=== PATIENT | male | born 1940 | race Caucasian/White ===

== ENCOUNTER 2018-03-12 08:20 | Inpatient (IN) | payer MEDICARE, MEDICAID ==
[2018-03-12] MEDS ORDERED: Norepinephrine 4 mg/4mL Vial IV ONE (08:44)
--- NOTE | 2018-03-12 08:47 | ED Physician Chart ---
ED Chief Complaint/HPI - Patient Information Date Seen:: 03/12/18 Time Seen:: 08:30 Chief Complaint:: congestion and hypoxemia History of Present Illness:: Patient has been congested and had low pulse ox for an unspecified length of time. Patient is apparently a DNR. Allergies:: Allergies Allergy/AdvReac Type Severity Reaction Status Date / Time No Known Allergies Allergy Verified 06/10/16 12:33 Historian:: EMS, Medical Records Review:: Transfer documents Reviewed ED Review of Systems - Review of Systems General/Constitutional: No fever, No chills, No weight loss, No weakness, No diaphoresis, No edema, No loss of appetite Skin: No skin lesions, No rash, No bruising Head: No headache, No light-headedness Eyes: No loss of vision, No pain, No diplopia ENT: No earache, No nasal drainage, No sore throat, No tinnitus Neck: No neck pain, No swelling, No thyromegaly, No stiffness, No mass noted Cardio Vascular: No chest pain, No palpitations, No PND, No orthopnea, No edema Pulmonary: No SOB, No cough, No sputum, No wheezing, Other (congestion and hypoxemia) GI: No nausea, No vomiting, No diarrhea, No pain, No melena, No hematochezia, No constipation, No hematemesis G/U: No dysuria, No frequency, No hematuria Musculoskeletal: No bone or joint pain, No back pain, No muscle pain Endocrine: No polyuria, No polydipsia Psychiatric: No prior psych history, No depression, No anxiety, No suicidal ideation Hematopoietic: No bruising, No lymphadenopathy Allergic/Immuno: No urticaria, No angioedema Neurological: No syncope, No focal symptoms, No weakness, No paresthesia, No headache, No seizure, No dizziness, No confusion, No vertigo ED Past Medical History - Past Medical History Past Medical History: DM, Other (status post bacteremia; atherosclerotic heart disease; congestive heart failure; C VA with left-sided weakness; benign prostatic hypertrophy hypercholesterolemia; major depression; anxiety status post pneumonia; peripheral vascular disease; GERDS) Family History: Other (not available) Social History: Care Facility Surgical History: other (not available) Psychiatricy History: Dementia Medication: Reviewed Family Medical History - Family Member Father History Unknown: Yes Living Status: Hx Family Cancer: No Hx Family Coronary Artery Disease: No Hx Family Congestive Heart Failure: No Hx Family Hypertension: No Hx Family Stroke: Yes Hx Family Diabetes: No Hx Family Seizures: No Hx Family Dementia: No Hx Family AIDS: No Hx Family HIV: No Hx Family COPD: No Hx Family Hepatitis: No Hx Family Psychiatric Problems: No Hx Family Tuberculosis: No ED Physical Exam - Physical Examination Other Gen/Cons comments:: Chronically ill-appearing Head: Atraumatic Eyes: Lids, conjuctiva normal, PERRL Other Skin comments:: Decubitus left heel ENMT: External ears, nose nl Neck: No bruit Other Respiratory comments:: Breath sounds harsh Other Cardio Vascular comments:: Heart sounds faint. GI: No tenderness/rebounding/guarding : No CVA tenderness Other Extremities comments:: Upper extremity edema Other Neuro/Psych comments:: Left-sided weakness Misc: Normal back ED Labs/Radiology/EKG Results - Lab Results Results: Laboratory Results - last 24 hr 03/12/18 03/12/18 03/12/18 09:30 09:30 09:30 WBC 16.1 H RBC 4.06 Hgb 12.7 Hct 36.7 L MCV 90.4 MCH 31.2 H MCHC Differential 34.6 RDW 15.5 Plt Count 383 MPV 8.3 Neutrophils % 93.6 H Lymphocytes % 3.6 L Monocytes % 2.7 Eosinophils % 0.1 Basophils % 0.0 Sodium 130 L Potassium 3.6 Chloride 93 L Carbon Dioxide 26.9 Anion Gap 13.7 BUN 29 H Creatinine 1.2 Est GFR ( Amer) TNP Est GFR (Non-Af Amer) TNP BUN/Creatinine Ratio 24.2 Glucose 107 H Calcium 8.2 L B-Natriuretic Peptide 65.8 - Radiology Results Results: Chest x-ray demonstrated bibasilar infiltrates and left pleural scarring - EKG Interpretations Rate & Rhythm: atrial fibrillation with a rate of 140; normal axis ED Septic Shock - . Is Septic Shock (SBP<90, OR Lactate>4 mmol\L) present?: No ED Reassessment (Disposition) - Reassessment Reassessment Condition:: Unchanged - Diagnosis Diagnosis:: Bilateral pneumonia; dementia; leukocytosis - Patient Disposition Admitted to:: Med/Surg Spoke to:: Octavio Oliveira Admitting Medical Physician:: Lashawn Oliveira Condition at Disposition:: Stable
[2018-03-12] MEDS ORDERED: Piperacillin Sodium/Tazobact 3.375 gm Vial IV ONE (08:59)
[2018-03-12] MEDS ORDERED: Sodium Chloride 0.9% 1,000 ML IV ONE ×2 (09:01→11:12)
--- NOTE | 2018-03-12 09:25 | Diagnostic Imaging Report ---
Portable chest x-ray HISTORY: Cough Compared with prior exam of 11/14/2017, density that appears to be calcified and associated with the pleura noted about the left hemithorax. Infiltrate noted in the left lower lobe essentially unchanged from the prior exam. Findings consistent with a chronic etiology (old inflammatory disease). Accentuation of interstitial markings in the right lower lobe. The heart size appears normal. Atherosclerotic calcification seen in the aorta. IMPRESSION: 1. Allowing for differences in positioning and radiographic technique, little changed from the exam of 11/14/2017. Extensive abnormal density that appears calcified within the left hemithorax and most likely associated with the pleura. Additional chronic changes noted in the left and to a lesser degree right lower lobe regions. If needed, a CT scan would provide additional clarification and assessment.
[2018-03-12 09:37] LABS: HEMATOCRIT 36.7 % (41.0-60); HEMOGLOBIN 12.7 gm/dL (12-16); LYMPHOCYTE ABSOLUTE 0.6 Th/cmm (1.5-3.0); MEAN CELL VOLUME 90.4 fl (80-99); MEAN CORPUSCULAR HEMOGLOBIN 31.2 pg (27.0-31.0); MEAN CORPUSCULAR HGB CONC 34.6 pg (28.0-36.0); MEAN PLATELET VOLUME 8.3 fl; MONOCYTE ABSOLUTE 0.4 Th/cmm (0.3-1.0); NEUTROPHILE ABSOLUTE 15.1 Th/cmm (1.8-8.0); PLATELET COUNT 383 Th/cmm (150-400); RED BLOOD COUNT 4.06 Mil/cmm (3.80-5.80); RED CELL DISTRIBUTION WIDTH 15.5 % (11.5-20.0)
[2018-03-12 09:38] LABS: % EOSINOPHILS 0.1 % (0.0-5.0); % LYMPHOCYTES 3.6 % (20.0-50.0); % MONOCYTES 2.7 % (2.0-10.0); % NEUTROPHILS 93.6 % (40.0-80.0); WHITE BLOOD COUNT 16.1 Th/cmm (4.8-10.8)
[2018-03-12 09:52] LABS: ANION GAP 13.7 (7.0-16.0); BUN - UREA NITROGEN 29 mg/dL (7-25); CALCIUM SERUM 8.2 mg/dL (8.6-10.3); CARBON DIOXIDE 26.9 mEq/L (21.0-31.0); CHLORIDE 93 mEq/L (98-107); CREATININE - SERUM 1.2 mg/dL (0.7-1.3); GLUCOSE 107 mg/dL (70-105); POTASSIUM SERUM 3.6 mEq/L (3.5-5.1); SODIUM SERUM 130 mEq/L (136-145)
[2018-03-12] MEDS ORDERED: Promethazine DM 6.25/15mg-5mL 5 ML SYR PO PRN (12:49)
[2018-03-12] MEDS: D5-0.45NS 1,000 ML IV SCH (13:54)
[2018-03-12] MEDS: metroNIDAZOLE 500mg/NS 100mL 500 MG/100 ML BAG IV SCH ×2 (14:47→22:07)
[2018-03-12] MEDS ORDERED: Acetaminophen 500 MG TAB PO PRN (18:51)
[2018-03-12] MEDS ORDERED: Magnesium Hydroxide (MOM) 30 mL UDC PO PRN (18:55)
[2018-03-12] MEDS: Clobetasol Propionate 0.05% Cream 45 gm Tube TP SCH (20:00)
[2018-03-13] MEDS: metroNIDAZOLE 500mg/NS 100mL 500 MG/100 ML BAG IV SCH ×3 (05:15→21:04)
[2018-03-13] MEDS: D5-0.45NS 1,000 ML IV SCH (05:56)
[2018-03-13 08:01] LABS: % BASOPHILS 2.3 % (0.0-2.0); % EOSINOPHILS 0.1 % (0.0-5.0); % LYMPHOCYTES 9.1 % (20.0-50.0); % NEUTROPHILS 87.5 % (40.0-80.0); BASOPHILE ABSOLUTE 0.4 Th/cumm (0-0.2); HEMATOCRIT 33.5 % (41.0-60); HEMOGLOBIN 11.3 gm/dL (12-16); LYMPHOCYTE ABSOLUTE 1.6 Th/cmm (1.5-3.0); MEAN CELL VOLUME 90.3 fl (80-99); MEAN CORPUSCULAR HEMOGLOBIN 30.5 pg (27.0-31.0); MEAN CORPUSCULAR HGB CONC 33.8 pg (28.0-36.0); MEAN PLATELET VOLUME 8.2 fl; MONOCYTE ABSOLUTE 0.2 Th/cmm (0.3-1.0); RED BLOOD COUNT 3.72 Mil/cmm (3.80-5.80); RED CELL DISTRIBUTION WIDTH 16.2 % (11.5-20.0)
--- NOTE | 2018-03-13 08:09 | Diagnostic Imaging Report ---
CHEST X-RAY: AP view INDICATION: Pneumonia COMPARISON: 03/12/2018 FINDINGS: Persistent left lung infiltrate and left lung pleural disease is seen with additional right lower lobe infiltrates. Heart size normal. Atherosclerosis is noted. IMPRESSION: Persistent bilateral infiltrates, left greater than right, with likely left lung pleural disease and pleural calcifications. If necessary short-term follow-up CT may also be obtained.
[2018-03-13 08:23] LABS: ALB/GLOB RATIO 0.7 (1.0-1.8); ALBUMIN 1.7 gm/dL (4.2-5.5); ALKALINE PHOSPHATASE 65 U/L (34-104); ANION GAP 11.6 (7.0-16.0); BILIRUBIN,TOTAL 0.8 mg/dL (0.3-1.0); BUN - UREA NITROGEN 30 mg/dL (7-25); CALCIUM SERUM 7.5 mg/dL (8.6-10.3); CARBON DIOXIDE 26.3 mEq/L (21.0-31.0); CHLORIDE 98 mEq/L (98-107); CREATININE - SERUM 0.9 mg/dL (0.7-1.3); GLUCOSE 118 mg/dL (70-105); MAGNESIUM 1.6 mg/dL (1.9-2.7); POTASSIUM SERUM 3.9 mEq/L (3.5-5.1); SGOT 17 U/L (13-39); SGPT/ALT 17 U/L (7-52); SODIUM SERUM 132 mEq/L (136-145); TOTAL PROTEIN,SERUM 4.2 gm/dL (6.0-8.3)
[2018-03-13 08:35] LABS: PLATELET COUNT 299 Th/cmm (150-400); WHITE BLOOD COUNT 17.2 Th/cmm (4.8-10.8)
[2018-03-13 09:32] LABS: pH 7.53 (7.35-7.45)
--- NOTE | 2018-03-13 10:10 | History & Physical ---
ADMIT DATE: CHIEF COMPLAINT: Congestion and shortness of breath. HISTORY OF PRESENT ILLNESS: This is a 78-year-old gentleman, resident of [facility] with history significant for CAD, diastolic heart failure, CVA with hemiparesis, essential hypertension, dementia, BPH, peripheral vascular disease, who apparently was treated recently with IV antibiotics for lung infection. He presented to the ED with worsening congestion and shortness of breath. He was noted to be lethargic and pertinent findings on admission included a white count of 16.1 with a sodium of 130, BUN 29, lactic acid of 7.22. He also was noted to be hypoxic and he was placed briefly on BiPAP, but now is currently doing well on 35% FiO2 via Venturi mask. He has been admitted to the medical/surgical floor, given that he is a DNR status--level 3. At this time, he is asleep, arousable, but not able to provide any significant history. PAST MEDICAL HISTORY: Please refer to the above, also unsteady gait, generalized muscle weakness, history of angina, essential hypertension, BPH, hypercholesterolemia, major depression with previous pneumonia, osteoarthritis, orthostatic hypotension, GERD/esophagitis. PAST SURGERIES: Unknown. FAMILY HISTORY: Unknown, but likely noncontributory to this admission. ALLERGIES: NKDA. OUTPATIENT MEDICATIONS: Docusate sodium 10 mg b.i.d., iron sulfate 325 b.i.d., gabapentin 300 b.i.d., DuoNeb q. 4 hours as needed for shortness of breath, lisinopril 5 mg every day, milk of magnesia p.r.n., multivitamins every day, omeprazole 20 every day, oxybutynin 5 mg b.i.d., Protonix 20 mg once a day, Remeron 22.5 at bedtime, Flomax 0.4 at bedtime, Tylenol p.r.n. for pain, venlafaxine 37.5 every day. REVIEW OF SYSTEMS: Not able to be done given patient's condition. PHYSICAL EXAMINATION: VITAL SIGNS: Temperature 97.3. He has been afebrile, pulse 87, respirations 17, BP 91/56, satting 93-95% on 35 FiO2. GENERAL: He is well-developed, well-nourished male, currently lethargic, but in no distress. HEAD AND NECK: Normocephalic, atraumatic. NECK: There is no JVD or LAD. CARDIAC: Regular rate and rhythm without any murmurs. LUNGS: Decreased with rhonchi bilaterally. ABDOMEN: Soft, supple, nontender, nondistended, normoactive bowel sounds. EXTREMITIES: On lower extremity, there is trace edema. NEUROLOGIC: Not able to be done given patient's condition. LABORATORY DATA: Labs on admission 16.1 with a white count, H and H 12/36 with a platelet count of 383, 93% neutrophils. Sodium 130, potassium 3.6, chloride 93, BUN is 29, creatinine 1.2 and glucose 107. Lactic acid as noted above 7.22. BNP level 84. Chest x-ray shows persistent bilateral infiltrates, left greater than right with likely left pleural disease and left pleural calcifications. ASSESSMENT: 1. Sepsis, shock. 2. Bilateral pneumonia, left greater than right with left lung pleural disease. 3. Hypoxemic respiratory failure. 4. Elevated lactic acid level. 5. Recent history of pneumonia. 6. History of diastolic heart failure. 7. History of coronary artery disease. 8. History of cerebrovascular accident with late effects. 9. History of hypercholesterolemia. 10. History of hypertension. 11. History of coronary artery disease/status post RI. 12. History of chronic debility. 13. History of depression. 14. DNR status level 3. PLAN: The patient has been admitted to Med/Surg for supportive care and treatment. The patient has been placed on antibiotics, pulmonary supportive care and IV steroids. He will remain on 35% FiO2 and an ST eval will be asked for given his current lethargic state. If able to pass swallow eval, his home meds will be slowly restarted. IV fluids have been started for fluid maintenance. Pulmonary consult will be asked for further management and care. [facility]# [id number] DEBORAH
--- NOTE | 2018-03-13 14:31 | Consultation ---
DATE OF CONSULTATION: 03/12/[address] Oliveira. Thank you very much, Dr. Oliveira for this consultation. HISTORY OF PRESENT ILLNESS: This is a 78-year-old male, [facility] resident, presents with cough, congestion, shortness of breath, was in significant distress, was placed on BiPAP and now is off the BiPAP on face mask, appears to be doing better and more comfortable. Tachycardia has improved as well. PAST MEDICAL HISTORY: As above in addition to dementia, CVA, BPH. SOCIAL HISTORY: Not available. REVIEW OF SYSTEMS: Unable to obtain because of the patient's condition. PHYSICAL EXAMINATION: GENERAL: The patient is lethargic, noncommunicative. VITAL SIGNS: Temperature 97.9, pulse is 100, respirations 22, blood pressure 125/65, saturation 100%. HEENT: Atraumatic, normocephalic. Pupils are reactive to light and accommodation. Ears, nose, and throat are normal. NECK: Supple. No JVD. CHEST: There are few rhonchi bilaterally. HEART: Regular rate and rhythm. ABDOMEN: Soft. EXTREMITIES: No edema. LABORATORY DATA AND DIAGNOSTIC STUDIES: WBC 16.1, hemoglobin 12.7, platelets are 383. Sodium 130, potassium 3.6, BUN 29, creatinine 1.2. Lactic acid 7.22. Chest x-ray; bilateral infiltrates, more on the left than the right. IMPRESSION: 1. This is a 78-year-old male with respiratory failure. 2. Pneumonia. 3. Sepsis. 4. Weakness. 5. Dementia. 6. Dysphagia. PLAN: 1. IV antibiotics. 2. Nebulizer treatment. 3. Pulmonary toilet. 4. Supportive care. 5. Follow up chest x-ray and I will follow the patient with you. Thank you very much for this consultation. JOB# [id number] DEBORAH
[2018-03-13] MEDS: Clobetasol Propionate 0.05% Cream 45 gm Tube TP SCH (17:41)
[2018-03-13] MEDS: Albuterol/Ipratropium Neb 3 ML AERS HHN PRN (23:10)
[2018-03-14] MEDS: D5-0.45NS 1,000 ML IV SCH (03:09)
[2018-03-14] MEDS: metroNIDAZOLE 500mg/NS 100mL 500 MG/100 ML BAG IV SCH ×3 (05:39→22:40)
[2018-03-14 07:34] LABS: HEMATOCRIT 28.6 % (41.0-60); HEMOGLOBIN 9.7 gm/dL (12-16); MEAN CELL VOLUME 90.7 fl (80-99); MEAN CORPUSCULAR HEMOGLOBIN 30.7 pg (27.0-31.0); MEAN CORPUSCULAR HGB CONC 33.8 pg (28.0-36.0); MEAN PLATELET VOLUME 8.4 fl; RED BLOOD COUNT 3.15 Mil/cmm (3.80-5.80); RED CELL DISTRIBUTION WIDTH 15.7 % (11.5-20.0); WHITE BLOOD COUNT 15.6 Th/cmm (4.8-10.8)
[2018-03-14 07:41] LABS: % BASOPHILS 0.1 % (0.0-2.0); % EOSINOPHILS 0.1 % (0.0-5.0); % LYMPHOCYTES 5.7 % (20.0-50.0); % MONOCYTES 2.3 % (2.0-10.0); % NEUTROPHILS 91.8 % (40.0-80.0); ANION GAP 11.1 (7.0-16.0); BUN - UREA NITROGEN 31 mg/dL (7-25); CALCIUM SERUM 6.9 mg/dL (8.6-10.3); CARBON DIOXIDE 24.9 mEq/L (21.0-31.0); CHLORIDE 100 mEq/L (98-107); CREATININE - SERUM 0.7 mg/dL (0.7-1.3); GLUCOSE 109 mg/dL (70-105); LYMPHOCYTE ABSOLUTE 0.9 Th/cmm (1.5-3.0); MAGNESIUM 1.7 mg/dL (1.9-2.7); MONOCYTE ABSOLUTE 0.4 Th/cmm (0.3-1.0); NEUTROPHILE ABSOLUTE 14.3 Th/cmm (1.8-8.0); PLATELET COUNT 364 Th/cmm (150-400); SODIUM SERUM 133 mEq/L (136-145)
[2018-03-14] MEDS: Albuterol/Ipratropium Neb 3 ML AERS HHN PRN ×3 (07:45→23:09)
--- NOTE | 2018-03-14 09:23 | Diagnostic Imaging Report ---
CT Chest without IV contrast HISTORY: Pneumonia COMPARISON: Chest x-ray on 03/13/2018. Technique: Axial images were obtained from the base of the neck to the upper abdomen without IV contrast. Reconstructions were made. Total DLP 312, CTD I 17.4 Findings: Evaluation of the mediastinum is limited due to lack of IV contrast. Borderline prominent mediastinal lymph nodes are noted. The ascending aorta measures up to 3.8 cm. Diffuse atherosclerosis is noted including heavy coronary artery calcifications. Heart size normal. Trace pericardial fluid is noted. Intraluminal density probable mucus is seen within the trachea. Evaluation of the lung jarrell demonstrate focal right apical infiltrate measuring 3 cm. Additional small tree-in-bud infiltrates of the lungs are seen. Bibasal consolidative changes are noted. Left upper lobe infiltrates are seen with multiple cavitary lesions within the left upper lobe the largest measuring 2.8 x 2.8 cm. Diffuse left-sided pleural calcifications are noted. Trace small bilateral effusions are noted. Upper abdomen demonstrates increased density of the gallbladder. Fatty liver is noted. Degenerative changes of the spine are noted. IMPRESSION: Left upper lobe cavitary infiltrates measuring up to 2.8 x 2.8 cm. Infectious etiologies is such as cavitating pneumonia. Tuberculosis may also be considered. Neoplastic etiology is less likely, however, follow-up is recommended to ensure resolution. Additional right upper lobe infiltrates measuring up to 3 cm for which follow-up is also recommended to ensure resolution Additional multiple tiny nodular tree-in-bud infiltrates noted. Bibasal consolidative changes are also noted with this small bilateral effusions. Diffuse left-sided pleural plaque calcifications which may be due to infectious inflammatory process or previous asbestos exposure. Diffuse atherosclerosis. Borderline prominent mediastinal lymph nodes, nonspecific and possibly reactive Fatty liver. Increased density in the gallbladder. This may be due to sludge. Ultrasound would further clarify. Final results were administered to the referring team on 03/14/2018 at 9:10 AM.
[2018-03-14] MEDS: Clobetasol Propionate 0.05% Cream 45 gm Tube TP SCH (09:40)
[2018-03-14] MEDS ORDERED: Potassium Chloride 40 MEQ, Lidocaine 1% 20mL Vial 25 MG in Sodium Chloride 0.9% 250 ML IV ONE (11:40)
[2018-03-14] MEDS: KCL 20mEq/100mL Premix Bag IV SCH ×2 (13:24→17:03)
[2018-03-15] MEDS: D5-0.45NS 1,000 ML IV SCH (03:53)
[2018-03-15] MEDS: metroNIDAZOLE 500mg/NS 100mL 500 MG/100 ML BAG IV SCH ×3 (06:13→21:29)
[2018-03-15 06:59] LABS: BASOPHILE ABSOLUTE 0.2 Th/cumm (0-0.2); HEMOGLOBIN 9.5 gm/dL (12-16); MEAN CELL VOLUME 89.3 fl (80-99); MEAN CORPUSCULAR HEMOGLOBIN 30.3 pg (27.0-31.0); MEAN CORPUSCULAR HGB CONC 33.9 pg (28.0-36.0); MEAN PLATELET VOLUME 7.9 fl; MONOCYTE ABSOLUTE 0.1 Th/cmm (0.3-1.0); NEUTROPHILE ABSOLUTE 13.7 Th/cmm (1.8-8.0); PLATELET COUNT 381 Th/cmm (150-400); RED BLOOD COUNT 3.14 Mil/cmm (3.80-5.80); RED CELL DISTRIBUTION WIDTH 15.9 % (11.5-20.0)
[2018-03-15 07:04] LABS: % BASOPHILS 1.6 % (0.0-2.0); % LYMPHOCYTES 6.9 % (20.0-50.0); % MONOCYTES 0.8 % (2.0-10.0); % NEUTROPHILS 90.7 % (40.0-80.0)
[2018-03-15 07:07] LABS: ANION GAP 11.9 (7.0-16.0); BUN - UREA NITROGEN 25 mg/dL (7-25); CALCIUM SERUM 6.8 mg/dL (8.6-10.3); CARBON DIOXIDE 24.2 mEq/L (21.0-31.0); CHLORIDE 102 mEq/L (98-107); CREATININE - SERUM 0.6 mg/dL (0.7-1.3); GLUCOSE 114 mg/dL (70-105); MAGNESIUM 1.9 mg/dL (1.9-2.7); POTASSIUM SERUM 3.1 mEq/L (3.5-5.1); SODIUM SERUM 135 mEq/L (136-145)
[2018-03-15] MEDS: Albuterol/Ipratropium Neb 3 ML AERS HHN PRN ×3 (08:06→23:17)
--- NOTE | 2018-03-15 10:03 | Diagnostic Imaging Report ---
CHEST X-RAY: AP view INDICATION: Shortness of breath COMPARISON: 03/13/2018 FINDINGS: Diffuse bilateral hazy infiltrates are seen with left-sided pleural calcifications. Heart size is borderline prominent. Atherosclerosis is noted. IMPRESSION: Diffuse bilateral hazy infiltrates, increased since prior exam Diffuse left pleural base calcifications.
[2018-03-15] MEDS: Clobetasol Propionate 0.05% Cream 45 gm Tube TP SCH (13:53)
[2018-03-15] MEDS: KCL 20mEq/100mL Premix 40 MEQ/200 ML PIGGYBACK IV SCH ×2 (15:21→18:20)
[2018-03-16] MEDS: D5-0.45NS 1,000 ML IV SCH (05:03)
[2018-03-16] MEDS: metroNIDAZOLE 500mg/NS 100mL 500 MG/100 ML BAG IV SCH ×3 (05:09→20:28)
[2018-03-16 06:38] LABS: HEMATOCRIT 28.9 % (41.0-60); HEMOGLOBIN 9.8 gm/dL (12-16); MEAN CELL VOLUME 90.2 fl (80-99); MEAN CORPUSCULAR HEMOGLOBIN 30.5 pg (27.0-31.0); MEAN CORPUSCULAR HGB CONC 33.9 pg (28.0-36.0); MEAN PLATELET VOLUME 7.4 fl; MONOCYTE ABSOLUTE 0.2 Th/cmm (0.3-1.0); NEUTROPHILE ABSOLUTE 13.7 Th/cmm (1.8-8.0); PLATELET COUNT 392 Th/cmm (150-400)
[2018-03-16 06:43] LABS: % EOSINOPHILS 0.1 % (0.0-5.0); % LYMPHOCYTES 6.9 % (20.0-50.0); % MONOCYTES 1.2 % (2.0-10.0); % NEUTROPHILS 91.8 % (40.0-80.0); WHITE BLOOD COUNT 14.9 Th/cmm (4.8-10.8)
[2018-03-16 06:59] LABS: ANION GAP 10.5 (7.0-16.0); BUN - UREA NITROGEN 19 mg/dL (7-25); CARBON DIOXIDE 25.9 mEq/L (21.0-31.0); CHLORIDE 105 mEq/L (98-107); CREATININE - SERUM 0.6 mg/dL (0.7-1.3); GLUCOSE 111 mg/dL (70-105); MAGNESIUM 1.9 mg/dL (1.9-2.7); POTASSIUM SERUM 3.4 mEq/L (3.5-5.1); SODIUM SERUM 138 mEq/L (136-145)
[2018-03-16] MEDS: Albuterol/Ipratropium Neb 3 ML AERS HHN PRN ×2 (07:27→14:44)
[2018-03-16] MEDS: Clobetasol Propionate 0.05% Cream 45 gm Tube TP SCH (09:00)
[2018-03-16] MEDS: D5-0.45NS w/10 mEq KCL 1,000 ML IV SCH (09:58)
[2018-03-17] MEDS: D5-0.45NS w/10 mEq KCL 1,000 ML IV SCH ×2 (04:50→12:20)
[2018-03-17] MEDS: metroNIDAZOLE 500mg/NS 100mL 500 MG/100 ML BAG IV SCH ×3 (05:21→20:34)
[2018-03-17 06:49] LABS: ANION GAP 11.6 (7.0-16.0); BUN - UREA NITROGEN 14 mg/dL (7-25); CALCIUM SERUM 7.1 mg/dL (8.6-10.3); CARBON DIOXIDE 24.5 mEq/L (21.0-31.0); CHLORIDE 105 mEq/L (98-107); CREATININE - SERUM 0.6 mg/dL (0.7-1.3); GLUCOSE 109 mg/dL (70-105); POTASSIUM SERUM 3.1 mEq/L (3.5-5.1); SODIUM SERUM 138 mEq/L (136-145)
[2018-03-17 06:57] LABS: % BASOPHILS 0.2 % (0.0-2.0); % EOSINOPHILS 0.2 % (0.0-5.0); % LYMPHOCYTES 7.7 % (20.0-50.0); % MONOCYTES 2.5 % (2.0-10.0); % NEUTROPHILS 89.4 % (40.0-80.0); HEMATOCRIT 30.5 % (41.0-60); HEMOGLOBIN 10.6 gm/dL (12-16); LYMPHOCYTE ABSOLUTE 1.2 Th/cmm (1.5-3.0); MEAN CELL VOLUME 89.4 fl (80-99); MEAN CORPUSCULAR HEMOGLOBIN 30.9 pg (27.0-31.0); MEAN CORPUSCULAR HGB CONC 34.6 pg (28.0-36.0); MEAN PLATELET VOLUME 7.5 fl; MONOCYTE ABSOLUTE 0.4 Th/cmm (0.3-1.0); NEUTROPHILE ABSOLUTE 13.6 Th/cmm (1.8-8.0); PLATELET COUNT 435 Th/cmm (150-400); RED BLOOD COUNT 3.42 Mil/cmm (3.80-5.80); RED CELL DISTRIBUTION WIDTH 16.4 % (11.5-20.0)
[2018-03-17 07:00] LABS: WHITE BLOOD COUNT 15.2 Th/cmm (4.8-10.8)
[2018-03-17] MEDS: Albuterol/Ipratropium Neb 3 ML AERS HHN PRN ×3 (07:35→22:27)
[2018-03-17] MEDS: Clobetasol Propionate 0.05% Cream 45 gm Tube TP SCH (09:07)
[2018-03-17] MEDS: KCL 20mEq/100mL Premix 20 MEQ/100 ML PIGGYBACK IV SCH ×2 (12:21→14:07)
--- NOTE | 2018-03-18 00:46 | Consultation ---
DATE OF CONSULTATION: 03/17/2018 TYPE OF CONSULTATION: GASTROENTEROLOGY. REQUESTING PHYSICIAN: Octavio Oliveira M.D. REASON FOR CONSULTATION: Dysphagia. HISTORY OF PRESENT ILLNESS: A 78-year-old male with a history of coronary artery disease, CHF, old stroke, hypertension, dementia, BPH, and peripheral vascular disease, who was admitted for shortness of breath and likely aspiration pneumonia. He failed a swallowing evaluation twice. He is currently in respiratory isolation, being ruled out for tuberculosis. We were asked to see him for possibility of G-tube insertion. He is currently DNR. PAST MEDICAL HISTORY: As above. MEDICATIONS: Here are Tylenol, Mucomyst, DuoNeb nebulizer, Coreg, Clobetasol cream, digoxin, Colace, milk of magnesia, Solu-Medrol, Flagyl, Remeron, PPN, Bactroban ointment, oxybutynin, Zosyn, Zocor and Flomax. ALLERGIES: None. SOCIAL HISTORY: No recent tobacco, alcohol or drugs. FAMILY HISTORY: Noncontributory. REVIEW OF SYSTEMS: A comprehensive 12-point review of systems conducted with the patient's brother and is only positive for those signs and symptoms present in the history of present illness. PHYSICAL EXAMINATION: VITAL SIGNS: Temperature of 97.1, blood pressure 120/70, pulse of 81, respirations 18, O2 sat is 95% on 4 liters O2 nasal cannula. GENERAL: The patient is well-developed, chronically ill-appearing male who is in mild respiratory distress. HEENT: Sclerae nonicteric. Oropharynx is clear. CARDIOVASCULAR: Regular rate and rhythm. LUNGS: With occasional rhonchi at the base. ABDOMEN: Soft, slightly distended, nontender, normoactive bowel sounds. No hepatosplenomegaly is appreciated. EXTREMITIES: No clubbing, cyanosis or edema. RECTAL: Deferred. LABORATORY/IMAGING DATA: WBC 15.2, hemoglobin 10.6, platelet count 435 and creatinine is 0.6. IMPRESSION: 1. Dysphagia with recurrent aspiration pneumonia and failing swallow evaluation x 2. 2. History of coronary artery disease and congestive heart failure. 3. Old stroke. 4. Hypertension and benign prostatic hypertrophy. 5. Dementia. 6. Peripheral vascular disease. 7. Chronic anemia. 8. Leukocytosis, rule out sepsis, likely from aspiration pneumonia. RECOMMENDATIONS: 1. I have discussed overall plan including possibility of a G-tube insertion or nasogastric tube insertion with the patient's brother. He has evaluated the patient's final health directive and does not want G-tube insertion or any other artificial means of nutrition including nasogastric tube for feedings. He is okay with IV fluids and TPN or PPN for now. 2. Continue speech therapy and evaluation with treatment. 3. Continue antibiotics. 4. Monitor labs including hemoglobin. 5. Continue antibiotics for sepsis. JOB# [id number]
[2018-03-18] MEDS: metroNIDAZOLE 500mg/NS 100mL 500 MG/100 ML BAG IV SCH ×3 (04:39→20:29)
[2018-03-18] MEDS: D5-0.45NS w/10 mEq KCL 1,000 ML IV SCH (04:39)
[2018-03-18 06:50] LABS: MEAN CORPUSCULAR HEMOGLOBIN 30.8 pg (27.0-31.0); MEAN PLATELET VOLUME 7.5 fl
[2018-03-18 06:55] LABS: WHITE BLOOD COUNT 12.7 Th/cmm (4.8-10.8)
[2018-03-18 06:56] LABS: % LYMPHOCYTES 4.9 % (20.0-50.0); % MONOCYTES 0.8 % (2.0-10.0); % NEUTROPHILS 94.3 % (40.0-80.0); HEMATOCRIT 27.5 % (41.0-60); HEMOGLOBIN 9.3 gm/dL (12-16); MEAN CELL VOLUME 91.3 fl (80-99); MEAN CORPUSCULAR HGB CONC 33.7 pg (28.0-36.0); PLATELET COUNT 359 Th/cmm (150-400); RED BLOOD COUNT 3.01 Mil/cmm (3.80-5.80)
[2018-03-18 06:57] LABS: LYMPHOCYTE ABSOLUTE 0.6 Th/cmm (1.5-3.0); MONOCYTE ABSOLUTE 0.1 Th/cmm (0.3-1.0)
[2018-03-18 07:06] LABS: ALB/GLOB RATIO 0.9 (1.0-1.8); ALBUMIN 1.7 gm/dL (4.2-5.5); ALKALINE PHOSPHATASE 48 U/L (34-104); ANION GAP 9.5 (7.0-16.0); BILIRUBIN,TOTAL 0.7 mg/dL (0.3-1.0); BUN - UREA NITROGEN 11 mg/dL (7-25); CALCIUM SERUM 6.8 mg/dL (8.6-10.3); CARBON DIOXIDE 24.5 mEq/L (21.0-31.0); CHLORIDE 107 mEq/L (98-107); CHOLESTEROL 78 mg/dL (<200); CREATININE - SERUM 0.5 mg/dL (0.7-1.3); GLUCOSE 129 mg/dL (70-105); MAGNESIUM 1.8 mg/dL (1.9-2.7); PHOSPHOROUS 1.6 mg/dL (2.5-5.0); SGOT 8 U/L (13-39); SGPT/ALT 12 U/L (7-52); SODIUM SERUM 138 mEq/L (136-145); TOTAL PROTEIN,SERUM 3.6 gm/dL (6.0-8.3); TRIGLYCERIDES 97 mg/dL (<150)
[2018-03-18] MEDS: Albuterol/Ipratropium Neb 3 ML AERS HHN PRN ×3 (07:39→22:35)
[2018-03-18] MEDS ORDERED: Mag Sulfate 2gm/50mL Premix 2 GM/50 ML BAG IV ONE (09:00)
[2018-03-18] MEDS: Clobetasol Propionate 0.05% Cream 45 gm Tube TP SCH (09:33)
[2018-03-18] MEDS ORDERED: Potassium Phosphate 30 MMOLE in Sodium Chloride 0.9% 250 ML IV ONE (10:00)
--- NOTE | 2018-03-18 11:38 | GI Progress Note ---
Subjective - Review of Systems Service Date: 03/18/18 Subjective: EVENTS NOTED. Objective - Results Result Diagrams: 03/18/18 06:30 03/18/18 06:30 Recent Labs: Laboratory Last Values WBC 12.7 Th/cmm (4.8-10.8) H 03/18/18 06:30 RBC 3.01 Mil/cmm (3.80-5.80) L 03/18/18 06:30 Hgb 9.3 gm/dL (12-16) L 03/18/18 06:30 Hct 27.5 % (41.0-60) L 03/18/18 06:30 MCV 91.3 fl (80-99) 03/18/18 06:30 MCH 30.8 pg (27.0-31.0) 03/18/18 06:30 MCHC Differential 33.7 pg (28.0-36.0) 03/18/18 06:30 RDW 17.0 % (11.5-20.0) 03/18/18 06:30 Plt Count 359 Th/cmm (150-400) 03/18/18 06:30 MPV 7.5 fl 03/18/18 06:30 Neutrophils % 94.3 % (40.0-80.0) H 03/18/18 06:30 Lymphocytes % 4.9 % (20.0-50.0) L 03/18/18 06:30 Monocytes % 0.8 % (2.0-10.0) L 03/18/18 06:30 Eosinophils % 0.0 % (0.0-5.0) 03/18/18 06:30 Basophils % 0.0 % (0.0-2.0) 03/18/18 06:30 Specimen Source Arterial 03/13/18 09:20 Sample Site RB 03/13/18 09:20 pH 7.53 (7.35-7.45) H 03/13/18 09:20 pCO2 35.0 mmHg (35.0-45.0) 03/13/18 09:20 pO2 65.0 mmHg (80.0-100.0) L 03/13/18 09:20 HCO3 29.9 mEq/L (20.0-26.0) H 03/13/18 09:20 Base Excess 6.4 mEq/L (-3.0-3.0) H 03/13/18 09:20 O2 Saturation 95.0 % (92.0-100.0) 03/13/18 09:20 Manan Test NA 03/13/18 09:20 Vent Rate NA 03/13/18 09:20 Inspired O2 35 03/13/18 09:20 Tidal Volume NA 03/13/18 09:20 PEEP NA 03/13/18 09:20 Pressure (ins/psv/peep) NA 03/13/18 09:20 Critical Value E.CORDERO 03/13/18 09:20 Sodium 138 mEq/L (136-145) 03/18/18 06:30 Potassium 3.0 mEq/L (3.5-5.1) L 03/18/18 06:30 Chloride 107 mEq/L (98-107) 03/18/18 06:30 Carbon Dioxide 24.5 mEq/L (21.0-31.0) 03/18/18 06:30 Anion Gap 9.5 (7.0-16.0) 03/18/18 06:30 BUN 11 mg/dL (7-25) 03/18/18 06:30 Creatinine 0.5 mg/dL (0.7-1.3) L 03/18/18 06:30 Est GFR ( Amer) TNP 03/18/18 06:30 Est GFR (Non-Af Amer) TNP 03/18/18 06:30 BUN/Creatinine Ratio 22.0 03/18/18 06:30 Glucose 129 mg/dL (70-105) H 03/18/18 06:30 POC Glucose 100 MG/DL (70 - 105) 03/12/18 13:31 Whole Bld Lactic Acid 1.12 mmol/L (0.60-1.99) 03/14/18 06:40 Calcium 6.8 mg/dL (8.6-10.3) L 03/18/18 06:30 Phosphorus 1.6 mg/dL (2.5-5.0) L 03/18/18 06:30 Magnesium 1.8 mg/dL (1.9-2.7) L 03/18/18 06:30 Total Bilirubin 0.7 mg/dL (0.3-1.0) 03/18/18 06:30 AST 8 U/L (13-39) L 03/18/18 06:30 ALT 12 U/L (7-52) 03/18/18 06:30 Alkaline Phosphatase 48 U/L (34-104) 03/18/18 06:30 B-Natriuretic Peptide 84.8 pg/mL (5.0-100.0) 03/13/18 06:00 Total Protein 3.6 gm/dL (6.0-8.3) L 03/18/18 06:30 Albumin 1.7 gm/dL (4.2-5.5) L 03/18/18 06:30 Globulin 1.9 gm/dL 03/18/18 06:30 Albumin/Globulin Ratio 0.9 (1.0-1.8) L 03/18/18 06:30 Triglycerides 97 mg/dL (<150) 03/18/18 06:30 Cholesterol 78 mg/dL (<200) 03/18/18 06:30 TB Test (QFT) Mitogen 0.48 03/15/18 18:22 TB Test (QFT) Antigen 0.06 03/15/18 18:22 TB Test Antigen - Nil 0.03 03/15/18 18:22 TB Test TB - Nil 0.03 03/15/18 18:22 - Physical Exam Vitals and I&O: Vital Signs Temp 97.2 F 03/18/18 08:35 Pulse 79 03/18/18 09:33 Resp 19 03/18/18 08:35 BP 103/52 03/18/18 09:33 Pulse Ox 99 03/18/18 08:35 Intake & Output 03/17/18 03/18/18 03/18/18 18:59 06:59 18:59 Intake Total 959.888 4848 Output Total 150 Balance 833.611 1573 Weight (lbs) 94.347 kg Intake: Intake, IV Amount 171.434 8296 D5-0.45NS w/10 mEq KCL 1, 562.5 1000 000 ml @ 75 mls/hr IV . [id number] [facility] Rx#:[id number] KCL 20mEq/100mL Premix 20 88.333 meq In 100 ml @ 50 mls/ hr IV Q2H [facility] Rx#: [id number] Piperacillin Sodium/ 50 100 Tazobact 3.375 gm In Sodium Chloride 0.9% 50 ml @ 100 mls/hr IV Q8HR [facility] Rx#:[id number] metroNIDAZOLE 500mg/NS 100 200 100mL 500 mg In 100 ml @ 100 mls/hr IV Q8HR [facility] Rx #:[id number] Output: Urine 150 Other: # Bowel Movements 0 Stool Characteristics Soft Weight Source Bedscale Active Medications: Current Medications Acetaminophen (Tylenol Extra Strength) 500 mg PO Q4H PRN PRN Reason: Pain or Fever >101 Stop: 05/11/18 18:50 Acetylcysteine (Mucomyst 20%) 2 ml HHN Q8HRT [facility] Stop: 05/11/18 22:59 Last Admin: 03/18/18 07:39 Dose: 2 ml Albuterol/Ipratropium (Duoneb Neb) 3 ml HHN Q4HRT PRN PRN Reason: Shortness of Breath or Wheeze Stop: 05/11/18 12:48 Last Admin: 03/18/18 07:39 Dose: 3 ml Carvedilol (Coreg) 6.25 mg PO BID [facility] Stop: 05/11/18 18:59 Last Admin: 03/18/18 09:33 Dose: Not Given Clobetasol Propionate (Temovate 0.05% Cream) 1 appl TP DAILY [facility] Stop: 05/11/18 18:59 Last Admin: 03/18/18 09:33 Dose: 1 appl Digoxin (Lanoxin) 0.125 mg PO DAILY [facility] Stop: 05/11/18 18:59 Last Admin: 03/18/18 09:31 Dose: Not Given Docusate Sodium (Colace) 100 mg PO HS [facility] Stop: 05/11/18 20:59 Last Admin: 03/17/18 20:35 Dose: Not Given Metronidazole (Flagyl) 500 mg in 100 mls @ 100 mls/hr IV Q8HR [facility] Stop: 05/11/18 13:59 Last Infusion: 03/18/18 05:39 Dose: Infused Piperacillin Sod/Tazobactam (Sod 3.375 gm/ Sodium Chloride) 50 mls @ 100 mls/ hr IV Q8HR [facility] Stop: 05/11/18 12:59 Last Infusion: 03/18/18 05:09 Dose: Infused Potassium Chloride/Dextrose/Sod Cl (D5-0.45ns W/10 Meq Kcl) 1,000 mls @ 75 mls/ hr IV .[id number] [facility] Stop: 03/18/18 15:59 Last Admin: 03/18/18 04:39 Dose: 75 mls/hr Potassium Phosphate 30 mmole/ (Sodium Chloride) 260 mls @ 42 mls/hr IV ONCE ONE Stop: 03/18/18 16:11 Multivitamins/Minerals 10 ml/Chromium/Copper/Manganese/Zinc 1 ml/ Amino Acids/ Fat Emulsion Intravenous 1,200 mls @ 50 mls/hr IV .Q24H [facility] Stop: 05/17/18 15:59 Dextrose/Sodium Chloride (D5-0.45ns) 1,000 mls @ 25 mls/hr IV .Q24H [facility] Stop: 05/17/18 15:59 Magnesium Hydroxide (Milk Of Magnesia) 30 ml PO DAILY PRN PRN Reason: Constipation Stop: 05/11/18 18:54 Methylprednisolone Sodium Succinate (Solu-Medrol) 60 mg IVP Q8HR [facility] Stop: 05/15/18 12:59 Last Admin: 03/18/18 04:42 Dose: 60 mg Mirtazapine (Remeron) 15 mg PO [facility] PRN Reason: Protocol Stop: 05/11/18 20:59 Last Admin: 03/17/18 20:35 Dose: Not Given Miscellaneous (Ppn Per Pharmacy) 1 ea MC PRN PRN PRN Reason: PROTOCOL Stop: 05/16/18 11:48 Oxybutynin Chloride (Ditropan) 5 mg PO BID [facility] Stop: 05/11/18 18:59 Last Admin: 03/18/18 09:32 Dose: 5 mg Promethazine HCl/Dextromethorphan (Phenergan Dm 6.25/15mg-5 Ml) 10 ml PO Q4H PRN PRN Reason: Cough Stop: 05/11/18 12:48 Simvastatin (Zocor) 20 mg PO [facility] PRN Reason: Protocol Stop: 05/11/18 20:59 Last Admin: 03/17/18 20:35 Dose: Not Given Tamsulosin HCl (Flomax) 0.4 mg PO [facility] Stop: 05/11/18 20:59 Last Admin: 03/17/18 20:35 Dose: Not Given General: No acute distress HEENT: Atraumatic Neck: Supple Cardiovascular: Regular rate Lungs: Other (OCC RHONCHI) Abdomen: Bowel sounds, Soft, no Tender - Procedures Procedures: Procedures Procedure Code Date DIPHTHERIA TOXOID ADMIN 99.36 09/08/10 DRAINAGE OF SKIN ABSCESS 06799 09/08/10 IMMUNIZATION ADMIN 99345 09/08/10 OTHER SKIN & SUBQ I D 86.04 01/12/15 TD VACCINE > 7 IM [id number] 09/08/10 TETANUS TOXOID ADMINIST 99.38 09/08/10 Assessment/Plan - Assessment Assessment: IMPRESSION: 1. DYSPHAGIA - FAILED SWALLOW EVALUATION. 2. DEMENTIA. 3. ANEMIA, LIKELY CHRONIC. 4. PNA, PROBABLE ASPIRATION - R/O TB. RECS: 1. FAMILY REFUSED PEG/NGT INSERTION. 2. START TPN/PPN. 3. MONITOR HGB. 4. PER PULM.
[2018-03-18] MEDS ORDERED: D5-0.45NS 1,000 ML IV SCH (16:00)
[2018-03-18] MEDS: AMINO ACIDS IV SCH (16:05)
[2018-03-18] MEDS: [UNRECOGNIZED DRUG - OTHER] IV SCH (16:05)
[2018-03-18] MEDS: MULTIVITAMIN IV SCH (16:05)
[2018-03-18] MEDS: TRACE ELEMENT IV SCH (16:05)
[2018-03-18] MEDS: DEXT 10% IV SCH (16:05)
[2018-03-18] MEDS: INSULIN ASPART SLIDING SCALE 100 UNITS/ML UNIT SUBQ SCH (17:12)
[2018-03-19] MEDS: INSULIN ASPART SLIDING SCALE 100 UNITS/ML UNIT SUBQ SCH ×4 (00:48→17:01)
[2018-03-19] MEDS: metroNIDAZOLE 500mg/NS 100mL 500 MG/100 ML BAG IV SCH ×3 (05:20→21:28)
[2018-03-19 06:46] LABS: HEMATOCRIT 27.3 % (41.0-60); HEMOGLOBIN 9.4 gm/dL (12-16); LYMPHOCYTE ABSOLUTE 0.8 Th/cmm (1.5-3.0); MANUAL DIFF REQUIRED? YES; MEAN CELL VOLUME 90.5 fl (80-99); MEAN CORPUSCULAR HEMOGLOBIN 31.2 pg (27.0-31.0); MEAN CORPUSCULAR HGB CONC 34.5 pg (28.0-36.0); MEAN PLATELET VOLUME 7.3 fl; MONOCYTE ABSOLUTE 0.7 Th/cmm (0.3-1.0); NEUTROPHILE ABSOLUTE 13.3 Th/cmm (1.8-8.0); PLATELET COUNT 411 Th/cmm (150-400); RED BLOOD COUNT 3.01 Mil/cmm (3.80-5.80); RED CELL DISTRIBUTION WIDTH 16.8 % (11.5-20.0)
[2018-03-19 06:49] LABS: WHITE BLOOD COUNT 14.8 Th/cmm (4.8-10.8)
[2018-03-19 07:16] LABS: ANION GAP 10.9 (7.0-16.0); BUN - UREA NITROGEN 10 mg/dL (7-25); CALCIUM SERUM 6.7 mg/dL (8.6-10.3); CARBON DIOXIDE 22.2 mEq/L (21.0-31.0); CHLORIDE 109 mEq/L (98-107); CREATININE - SERUM 0.5 mg/dL (0.7-1.3); GLUCOSE 118 mg/dL (70-105); MAGNESIUM 1.9 mg/dL (1.9-2.7); PHOSPHOROUS 2.5 mg/dL (2.5-5.0); POTASSIUM SERUM 3.1 mEq/L (3.5-5.1); SODIUM SERUM 139 mEq/L (136-145)
[2018-03-19 08:16] LABS: ANISOCYTOSIS 1+; LYMPHOCYTE 5 % (20-50); MONOCYTE 4 % (2-10); NEUTROPHILS 91 % (40-80); PLATELET ESTIMATE ADEQUATE (NORMAL); TOTAL CELLS COUNTED 100
[2018-03-19] MEDS: Albuterol/Ipratropium Neb 3 ML AERS HHN PRN ×3 (08:32→23:27)
[2018-03-19] MEDS: Clobetasol Propionate 0.05% Cream 45 gm Tube TP SCH (08:56)
[2018-03-19] MEDS ORDERED: Potassium Phosphate 20 MMOLE in Dextrose 5% 250 ML IV ONE (09:00)
[2018-03-19] MEDS: methylPREDNISolone SS 40 mg Vial IVP SCH ×2 (13:03→21:28)
[2018-03-19] MEDS: TRACE ELEMENT IV SCH (17:00)
[2018-03-19] MEDS: [UNRECOGNIZED DRUG - OTHER] IV SCH (17:00)
[2018-03-19] MEDS: AMINO ACIDS IV SCH (17:00)
[2018-03-19] MEDS: MULTIVITAMIN IV SCH (17:00)
[2018-03-19] MEDS: DEXT 10% IV SCH (17:00)
--- NOTE | 2018-03-19 21:31 | GI Progress Note ---
Subjective - Review of Systems Service Date: 03/19/18 Subjective: EVENTS NOTED. REMAINS CONFUSED. Objective - Results Result Diagrams: 03/19/18 06:00 03/19/18 06:00 Recent Labs: Laboratory Last Values WBC 14.8 Th/cmm (4.8-10.8) H 03/19/18 06:00 RBC 3.01 Mil/cmm (3.80-5.80) L 03/19/18 06:00 Hgb 9.4 gm/dL (12-16) L 03/19/18 06:00 Hct 27.3 % (41.0-60) L 03/19/18 06:00 MCV 90.5 fl (80-99) 03/19/18 06:00 MCH 31.2 pg (27.0-31.0) H 03/19/18 06:00 MCHC Differential 34.5 pg (28.0-36.0) 03/19/18 06:00 RDW 16.8 % (11.5-20.0) 03/19/18 06:00 Plt Count 411 Th/cmm (150-400) H 03/19/18 06:00 MPV 7.3 fl 03/19/18 06:00 Neutrophils % 94.3 % (40.0-80.0) H 03/18/18 06:30 Lymphocytes % 4.9 % (20.0-50.0) L 03/18/18 06:30 Monocytes % 0.8 % (2.0-10.0) L 03/18/18 06:30 Eosinophils % 0.0 % (0.0-5.0) 03/18/18 06:30 Basophils % 0.0 % (0.0-2.0) 03/18/18 06:30 Neutrophils (Manual) 91 % (40-80) H 03/19/18 06:00 Lymphocytes 5 % (20-50) L 03/19/18 06:00 Monocytes 4 % (2-10) 03/19/18 06:00 Platelet Estimate ADEQUATE (NORMAL) 03/19/18 06:00 Anisocytosis 1+ 03/19/18 06:00 Specimen Source Arterial 03/13/18 09:20 Sample Site RB 03/13/18 09:20 pH 7.53 (7.35-7.45) H 03/13/18 09:20 pCO2 35.0 mmHg (35.0-45.0) 03/13/18 09:20 pO2 65.0 mmHg (80.0-100.0) L 03/13/18 09:20 HCO3 29.9 mEq/L (20.0-26.0) H 03/13/18 09:20 Base Excess 6.4 mEq/L (-3.0-3.0) H 03/13/18 09:20 O2 Saturation 95.0 % (92.0-100.0) 03/13/18 09:20 Manan Test NA 03/13/18 09:20 Vent Rate NA 03/13/18 09:20 Inspired O2 35 03/13/18 09:20 Tidal Volume NA 03/13/18 09:20 PEEP NA 03/13/18 09:20 Pressure (ins/psv/peep) NA 03/13/18 09:20 Critical Value E.CORDERO 03/13/18 09:20 Sodium 139 mEq/L (136-145) 03/19/18 06:00 Potassium 3.1 mEq/L (3.5-5.1) L 03/19/18 06:00 Chloride 109 mEq/L (98-107) H 03/19/18 06:00 Carbon Dioxide 22.2 mEq/L (21.0-31.0) 03/19/18 06:00 Anion Gap 10.9 (7.0-16.0) 03/19/18 06:00 BUN 10 mg/dL (7-25) 03/19/18 06:00 Creatinine 0.5 mg/dL (0.7-1.3) L 03/19/18 06:00 Est GFR ( Amer) TNP 03/19/18 06:00 Est GFR (Non-Af Amer) TNP 03/19/18 06:00 BUN/Creatinine Ratio 20.0 03/19/18 06:00 Glucose 118 mg/dL (70-105) H 03/19/18 06:00 POC Glucose 173 MG/DL (70 - 105) H 03/19/18 17:00 Whole Bld Lactic Acid 1.12 mmol/L (0.60-1.99) 03/14/18 06:40 Calcium 6.7 mg/dL (8.6-10.3) L 03/19/18 06:00 Phosphorus 2.5 mg/dL (2.5-5.0) 03/19/18 06:00 Magnesium 1.9 mg/dL (1.9-2.7) 03/19/18 06:00 Total Bilirubin 0.7 mg/dL (0.3-1.0) 03/18/18 06:30 AST 8 U/L (13-39) L 03/18/18 06:30 ALT 12 U/L (7-52) 03/18/18 06:30 Alkaline Phosphatase 48 U/L (34-104) 03/18/18 06:30 B-Natriuretic Peptide 84.8 pg/mL (5.0-100.0) 03/13/18 06:00 Total Protein 3.6 gm/dL (6.0-8.3) L 03/18/18 06:30 Albumin 1.7 gm/dL (4.2-5.5) L 03/18/18 06:30 Globulin 1.9 gm/dL 03/18/18 06:30 Albumin/Globulin Ratio 0.9 (1.0-1.8) L 03/18/18 06:30 Prealbumin 19 mg/dL 03/18/18 06:30 Triglycerides 97 mg/dL (<150) 03/18/18 06:30 Cholesterol 78 mg/dL (<200) 03/18/18 06:30 TB Test (QFT) Mitogen 0.48 03/15/18 18:22 TB Test (QFT) Antigen 0.06 03/15/18 18:22 TB Test Antigen - Nil 0.03 03/15/18 18:22 TB Test TB - Nil 0.03 03/15/18 18:22 - Physical Exam Vitals and I&O: Vital Signs Temp 98.3 F 03/19/18 20:00 Pulse 114 03/19/18 20:00 Resp 18 03/19/18 20:00 BP 106/67 03/19/18 20:00 Pulse Ox 93 03/19/18 20:00 Intake & Output 03/19/18 03/19/18 03/20/18 06:59 18:59 06:59 Intake Total 300 1350 Output Total 200 Balance 100 1350 Weight (lbs) 95.254 kg Intake: Intake, IV Amount 300 1350 Multivitamin Inj 10 ml 1200 Trace Element 1 ml In Amino Acids 4.25% /Dext 10% 1,039 ml In Intralipids 20% 150 ml @ 50 mls/hr IV .Q24H [facility] Rx #:[id number] Piperacillin Sodium/ 100 50 Tazobact 3.375 gm In Sodium Chloride 0.9% 50 ml @ 100 mls/hr IV Q8HR [facility] Rx#:[id number] metroNIDAZOLE 500mg/NS 200 100 100mL 500 mg In 100 ml @ 100 mls/hr IV Q8HR [facility] Rx #:[id number] Output: Urine 200 Other: # Bowel Movements 1 Stool Characteristics Brown Brown Weight Source Bedscale Active Medications: Current Medications Acetaminophen (Tylenol Extra Strength) 500 mg PO Q4H PRN PRN Reason: Pain or Fever >101 Stop: 05/11/18 18:50 Acetylcysteine (Mucomyst 20%) 2 ml HHN Q8HRT [facility] Stop: 05/11/18 22:59 Last Admin: 03/19/18 14:52 Dose: 2 ml Albuterol/Ipratropium (Duoneb Neb) 3 ml HHN Q4HRT PRN PRN Reason: Shortness of Breath or Wheeze Stop: 05/11/18 12:48 Last Admin: 03/19/18 14:52 Dose: 3 ml Carvedilol (Coreg) 6.25 mg PO BID [facility] Stop: 05/11/18 18:59 Last Admin: 03/19/18 17:06 Dose: Not Given Clobetasol Propionate (Temovate 0.05% Cream) 1 appl TP DAILY [facility] Stop: 05/11/18 18:59 Last Admin: 03/19/18 08:56 Dose: 1 appl Digoxin (Lanoxin) 0.125 mg PO DAILY [facility] Stop: 05/11/18 18:59 Last Admin: 03/19/18 09:00 Dose: Not Given Docusate Sodium (Colace) 100 mg PO HS [facility] Stop: 05/11/18 20:59 Last Admin: 03/18/18 20:30 Dose: Not Given Metronidazole (Flagyl) 500 mg in 100 mls @ 100 mls/hr IV Q8HR [facility] Stop: 05/11/18 13:59 Last Infusion: 03/19/18 13:06 Dose: Infused Piperacillin Sod/Tazobactam (Sod 3.375 gm/ Sodium Chloride) 50 mls @ 100 mls/ hr IV Q8HR [facility] Stop: 05/11/18 12:59 Last Infusion: 03/19/18 12:36 Dose: Infused Multivitamins/Minerals 10 ml/Chromium/Copper/Manganese/Zinc 1 ml/ Amino Acids/ Fat Emulsion Intravenous 1,200 mls @ 50 mls/hr IV .Q24H [facility] Stop: 05/17/18 15:59 Last Admin: 03/19/18 17:00 Dose: 50 mls/hr Dextrose/Sodium Chloride (D5-0.45ns) 1,000 mls @ 25 mls/hr IV .Q24H [facility] Stop: 05/17/18 15:59 Last Admin: 03/18/18 20:30 Dose: 25 mls/hr Insulin Aspart (Novolog Insulin Sliding Scale) 0 units SUBQ Q6HR [facility] PRN Reason: Protocol Stop: 05/17/18 17:59 Last Admin: 03/19/18 17:01 Dose: 2 units Magnesium Hydroxide (Milk Of Magnesia) 30 ml PO DAILY PRN PRN Reason: Constipation Stop: 05/11/18 18:54 Methylprednisolone Sodium Succinate (Solu-Medrol) 40 mg IVP Q8HR [facility] Stop: 05/18/18 12:59 Last Admin: 03/19/18 13:03 Dose: 40 mg Mirtazapine (Remeron) 15 mg PO [facility] PRN Reason: Protocol Stop: 05/11/18 20:59 Last Admin: 03/18/18 20:31 Dose: Not Given Miscellaneous (Ppn Per Pharmacy) 1 ea MC PRN PRN PRN Reason: PROTOCOL Stop: 05/16/18 11:48 Oxybutynin Chloride (Ditropan) 5 mg PO BID [facility] Stop: 05/11/18 18:59 Last Admin: 03/19/18 17:06 Dose: Not Given Promethazine HCl/Dextromethorphan (Phenergan Dm 6.25/15mg-5 Ml) 10 ml PO Q4H PRN PRN Reason: Cough Stop: 05/11/18 12:48 Simvastatin (Zocor) 20 mg PO HS [facility] PRN Reason: Protocol Stop: 05/11/18 20:59 Last Admin: 03/18/18 20:31 Dose: Not Given Tamsulosin HCl (Flomax) 0.4 mg PO HS [facility] Stop: 05/11/18 20:59 Last Admin: 03/18/18 20:31 Dose: Not Given General: No acute distress HEENT: Atraumatic Neck: Supple Cardiovascular: Regular rate Lungs: Other (OCC RHONCHI) Abdomen: Bowel sounds, Soft, no Tender - Procedures Procedures: Procedures Procedure Code Date DIPHTHERIA TOXOID ADMIN 99.36 09/08/10 DRAINAGE OF SKIN ABSCESS 58773 09/08/10 IMMUNIZATION ADMIN 99435 09/08/10 OTHER SKIN & SUBQ I D 86.04 01/12/15 TD VACCINE > 7 [place] 27457 09/08/10 TETANUS TOXOID ADMINIST 99.38 09/08/10 Assessment/Plan - Assessment Assessment: IMPRESSION: 1. DYSPHAGIA - FAILED SWALLOW EVALUATION. 2. DEMENTIA. 3. ANEMIA, LIKELY CHRONIC. 4. PNA, PROBABLE ASPIRATION - R/O TB. RECS: 1. FAMILY REFUSED PEG/NGT INSERTION. 2. CONTINUE TPN/PPN. 3. MONITOR HGB. 4. PER PULM. NO ACTIVE GI ISSUES CURRENTLY. WILL SIGN OFF AND SEE PATIENT NEEDED. PLEASE CALL US IF QUESTIONS.
[2018-03-20] MEDS: INSULIN ASPART SLIDING SCALE 100 UNITS/ML UNIT SUBQ SCH ×5 (00:58→23:17)
[2018-03-20] MEDS: methylPREDNISolone SS 40 mg Vial IVP SCH ×3 (05:10→22:02)
[2018-03-20] MEDS: metroNIDAZOLE 500mg/NS 100mL 500 MG/100 ML BAG IV SCH ×3 (05:11→22:02)
[2018-03-20 07:32] LABS: ALB/GLOB RATIO 0.8 (1.0-1.8); ALBUMIN 1.8 gm/dL (4.2-5.5); ALKALINE PHOSPHATASE 45 U/L (34-104); ANION GAP 12.3 (7.0-16.0); BILIRUBIN,TOTAL 0.9 mg/dL (0.3-1.0); BUN - UREA NITROGEN 12 mg/dL (7-25); CALCIUM SERUM 7.1 mg/dL (8.6-10.3); CARBON DIOXIDE 21.8 mEq/L (21.0-31.0); CHLORIDE 107 mEq/L (98-107); CREATININE - SERUM 0.5 mg/dL (0.7-1.3); GLUCOSE 121 mg/dL (70-105); MAGNESIUM 1.7 mg/dL (1.9-2.7); PHOSPHOROUS 2.3 mg/dL (2.5-5.0); POTASSIUM SERUM 3.1 mEq/L (3.5-5.1); SGOT 10 U/L (13-39); SGPT/ALT 11 U/L (7-52); SODIUM SERUM 138 mEq/L (136-145)
[2018-03-20] MEDS: Albuterol/Ipratropium Neb 3 ML AERS HHN PRN ×3 (07:42→23:04)
--- NOTE | 2018-03-20 09:28 | Diagnostic Imaging Report ---
Portable chest x-ray HISTORY: Shortness of breath Compared with prior exam of 03/15/2018, no change in pleural calcification about the left hemithorax. No change in bilateral pulmonary parenchymal density that corresponds to findings noted on earlier CT scan of 03/13/2018. Changes are consistent with a chronic etiology. Superimposed pneumonia is difficult to exclude. Clinical correlation needed. IMPRESSION: 1. No significant change from 03/15/2018 as noted above.
[2018-03-20] MEDS ORDERED: Potassium Phosphate 21 MMOLE in Sodium Chloride 0.9% 250 ML IV ONE (09:45)
[2018-03-20] MEDS ORDERED: KCL 20mEq/100mL Premix 20 MEQ/100 ML PIGGYBACK IV SCH (09:45)
[2018-03-20] MEDS ORDERED: Potassium Phosphate 30 MMOLE in Sodium Chloride 0.9% 250 ML IV ONE (09:56)
[2018-03-20] MEDS: Potassium Chloride Elixir 20 mEq /15 mL UDC PO SCH (10:51)
[2018-03-20] MEDS: Clobetasol Propionate 0.05% Cream 45 gm Tube TP SCH (15:50)
[2018-03-20] MEDS: TRACE ELEMENT IV SCH (17:07)
[2018-03-20] MEDS: Levofloxacin 500mg/100mL 500 MG/100 ML BAG IV SCH (17:07)
[2018-03-20] MEDS: DEXT 10% IV SCH (17:07)
[2018-03-20] MEDS: MULTIVITAMIN IV SCH (17:07)
[2018-03-20] MEDS: AMINO ACIDS IV SCH (17:07)
[2018-03-20] MEDS: [UNRECOGNIZED DRUG - OTHER] IV SCH (17:07)
[2018-03-21] MEDS: metroNIDAZOLE 500mg/NS 100mL 500 MG/100 ML BAG IV SCH ×3 (05:27→21:23)
[2018-03-21] MEDS: methylPREDNISolone SS 40 mg Vial IVP SCH ×3 (05:27→21:23)
[2018-03-21] MEDS: INSULIN ASPART SLIDING SCALE 100 UNITS/ML UNIT SUBQ SCH ×3 (05:51→18:12)
[2018-03-21 06:53] LABS: ALBUMIN 1.9 gm/dL (4.2-5.5); ALKALINE PHOSPHATASE 40 U/L (34-104); ANION GAP 8.2 (7.0-16.0); BILIRUBIN,TOTAL 0.6 mg/dL (0.3-1.0); BUN - UREA NITROGEN 12 mg/dL (7-25); CALCIUM SERUM 7.2 mg/dL (8.6-10.3); CARBON DIOXIDE 26.8 mEq/L (21.0-31.0); CHLORIDE 107 mEq/L (98-107); CREATININE - SERUM 0.4 mg/dL (0.7-1.3); GLUCOSE 141 mg/dL (70-105); MAGNESIUM 1.8 mg/dL (1.9-2.7); PHOSPHOROUS 2.9 mg/dL (2.5-5.0); SGOT 8 U/L (13-39); SGPT/ALT 11 U/L (7-52); SODIUM SERUM 138 mEq/L (136-145); TOTAL PROTEIN,SERUM 3.9 gm/dL (6.0-8.3)
[2018-03-21] MEDS: Venelex 60gm Tube TP SCH (08:26)
[2018-03-21] MEDS: Potassium Chloride Elixir 20 mEq /15 mL UDC PO SCH (09:53)
[2018-03-21] MEDS: Levofloxacin 500mg/100mL 500 MG/100 ML BAG IV SCH (11:51)
[2018-03-21] MEDS: Clobetasol Propionate 0.05% Cream 45 gm Tube TP SCH (11:54)
[2018-03-21] MEDS: Albuterol/Ipratropium Neb 3 ML AERS HHN PRN ×2 (14:37→23:59)
[2018-03-21] MEDS: DEXT 10% IV SCH (16:09)
[2018-03-21] MEDS: [UNRECOGNIZED DRUG - OTHER] IV SCH (16:09)
[2018-03-21] MEDS: AMINO ACIDS IV SCH (16:09)
[2018-03-21] MEDS: MULTIVITAMIN IV SCH (16:09)
[2018-03-21] MEDS: TRACE ELEMENT IV SCH (16:09)
[2018-03-22] MEDS: INSULIN ASPART SLIDING SCALE 100 UNITS/ML UNIT SUBQ SCH ×4 (00:14→17:31)
[2018-03-22] MEDS: methylPREDNISolone SS 40 mg Vial IVP SCH ×3 (04:39→20:30)
[2018-03-22] MEDS: metroNIDAZOLE 500mg/NS 100mL 500 MG/100 ML BAG IV SCH ×3 (04:40→20:31)
[2018-03-22] MEDS: Albuterol/Ipratropium Neb 3 ML AERS HHN PRN ×3 (06:58→22:29)
[2018-03-22 07:09] LABS: ALB/GLOB RATIO 0.9 (1.0-1.8); ALKALINE PHOSPHATASE 43 U/L (34-104); ANION GAP 8.4 (7.0-16.0); BILIRUBIN,TOTAL 0.7 mg/dL (0.3-1.0); BUN - UREA NITROGEN 13 mg/dL (7-25); CALCIUM SERUM 7.5 mg/dL (8.6-10.3); CARBON DIOXIDE 26.3 mEq/L (21.0-31.0); CHLORIDE 106 mEq/L (98-107); CREATININE - SERUM 0.4 mg/dL (0.7-1.3); GLUCOSE 147 mg/dL (70-105); PHOSPHOROUS 2.5 mg/dL (2.5-5.0); POTASSIUM SERUM 4.7 mEq/L (3.5-5.1); SGOT 10 U/L (13-39); SGPT/ALT 13 U/L (7-52); SODIUM SERUM 136 mEq/L (136-145); TOTAL PROTEIN,SERUM 4.2 gm/dL (6.0-8.3)
[2018-03-22] MEDS: Potassium Chloride Elixir 20 mEq /15 mL UDC PO SCH (09:55)
[2018-03-22] MEDS: Levofloxacin 500mg/100mL 500 MG/100 ML BAG IV SCH (10:04)
[2018-03-22] MEDS: Venelex 60gm Tube TP SCH (10:10)
[2018-03-22] MEDS: Clobetasol Propionate 0.05% Cream 45 gm Tube TP SCH (10:10)
[2018-03-22] MEDS: DEXT 10% IV SCH (16:48)
[2018-03-22] MEDS: TRACE ELEMENT IV SCH (16:48)
[2018-03-22] MEDS: AMINO ACIDS IV SCH (16:48)
[2018-03-22] MEDS: MULTIVITAMIN IV SCH (16:48)
[2018-03-22] MEDS: [UNRECOGNIZED DRUG - OTHER] IV SCH (16:48)
[2018-03-23] MEDS: INSULIN ASPART SLIDING SCALE 100 UNITS/ML UNIT SUBQ SCH ×4 (00:29→17:43)
[2018-03-23] MEDS: metroNIDAZOLE 500mg/NS 100mL 500 MG/100 ML BAG IV SCH ×3 (05:33→22:05)
[2018-03-23] MEDS: Albuterol/Ipratropium Neb 3 ML AERS HHN PRN (07:24)
[2018-03-23 08:26] LABS: ALB/GLOB RATIO 1.1 (1.0-1.8); ALBUMIN 2.3 gm/dL (4.2-5.5); ALKALINE PHOSPHATASE 50 U/L (34-104); ANION GAP 13.4 (7.0-16.0); BILIRUBIN,TOTAL 0.7 mg/dL (0.3-1.0); BUN - UREA NITROGEN 17 mg/dL (7-25); CALCIUM SERUM 7.8 mg/dL (8.6-10.3); CARBON DIOXIDE 20.5 mEq/L (21.0-31.0); CHLORIDE 105 mEq/L (98-107); CREATININE - SERUM 0.5 mg/dL (0.7-1.3); GLUCOSE 124 mg/dL (70-105); PHOSPHOROUS 2.8 mg/dL (2.5-5.0); POTASSIUM SERUM 4.9 mEq/L (3.5-5.1); SGOT 15 U/L (13-39); SGPT/ALT 18 U/L (7-52); SODIUM SERUM 134 mEq/L (136-145); TOTAL PROTEIN,SERUM 4.4 gm/dL (6.0-8.3)
[2018-03-23] MEDS: methylPREDNISolone SS 40 mg Vial IVP SCH ×2 (08:28→22:03)
[2018-03-23] MEDS ORDERED: Diltiazem 5 mg/mL 5mL Vial IVP ONE (08:30)
[2018-03-23] MEDS: Clobetasol Propionate 0.05% Cream 45 gm Tube TP SCH (08:32)
[2018-03-23] MEDS: Venelex 60gm Tube TP SCH (08:32)
[2018-03-23] MEDS: Potassium Chloride Elixir 20 mEq /15 mL UDC PO SCH (08:52)
[2018-03-23] MEDS ORDERED: Morphine Sulfate 4 mg/mL 1mL Syr IV PRN (10:27)
[2018-03-23] MEDS: Levofloxacin 500mg/100mL 500 MG/100 ML BAG IV SCH (11:37)
[2018-03-23] MEDS ORDERED: Ipratropium Neb 0.5 mg/2.5 mL UD HHN SCH ×3 (13:00→23:00)
[2018-03-23] MEDS: [UNRECOGNIZED DRUG - OTHER] IV SCH (17:27)
[2018-03-23] MEDS: MULTIVITAMIN IV SCH (17:27)
[2018-03-23] MEDS: AMINO ACIDS IV SCH (17:27)
[2018-03-23] MEDS: DEXT 10% IV SCH (17:27)
[2018-03-23] MEDS: TRACE ELEMENT IV SCH (17:27)
[2018-03-23] MEDS: Diltiazem 5 mg/mL 5mL Vial IVP PRN (22:02)
--- NOTE | 2018-03-23 22:07 | Consultation ---
DATE OF CONSULTATION: 03/23/2018 PATIENT OF: Dr. Oliveira. HISTORY AND PHYSICAL: This is 78-year-old male patient recently admitted to [facility] with septic shock, hypotension, aspiration pneumonia bilateral. During the hospital stay, the patient developed supraventricular tachycardia and hence, Cardiology consult is requested. PAST MEDICAL HISTORY: Recurrent aspiration pneumonia, coronary artery disease, old myocardial infarction, congestive heart failure, diastolic dysfunction, hypertension, BPH, dementia, peripheral vascular disease, iron deficiency anemia, CVA with late effect, and major depression. FAMILY HISTORY: Unremarkable. SOCIAL HISTORY: No history of smoking, alcohol abuse. ALLERGIES: No known allergies. PHYSICAL EXAMINATION: VITAL SIGNS: Blood pressure 110/70, pulse 130, and respirations 28. HEAD: Normocephalic. No lumps or bumps. EYES: Pupils are equal and reactive to light. Fundi showing nicking. Sclerae white. Conjunctivae pink. NECK: Carotid 2+. Normal upstroke. JVD flat. Thyroid not palpable. Lymph nodes not palpable. CHEST: Shows increased AP diameter. No kyphosis or scoliosis. LUNGS: Bilateral bronchovesicular breath sounds. Bilateral wheezing, rhonchi, prolonged expiration. HEART: PMI fifth intercostal space with lateral to midclavicular line. S1, S2, S3, S4. Soft systolic murmur. ABDOMEN: Soft. Liver and spleen not palpable. No organomegaly. Bowel sounds active. NEUROLOGIC: The patient has CVA with late effect. EXTREMITIES: Peripheral pulses feeble. CLINICAL IMPRESSION: Supraventricular tachycardia, acute respiratory failure with bilateral aspiration pneumonia, stable angina, old myocardial infarction, congestive heart failure, diastolic dysfunction, supraventricular tachycardia, benign prostatic hypertrophy, dementia, peripheral vascular disease, iron deficiency anemia, cerebrovascular accident with late effect, and major depression. PLAN: The patient will be given IV Cardizem and IV digoxin. Continue with present management with antibiotics. [facility]# [id number]
[2018-03-23] MEDS: Ipratropium Neb 0.5 mg/2.5 mL UD HHN SCH (22:42)
[2018-03-24 00:10] LABS: MANUAL DIFF REQUIRED? YES
[2018-03-24 00:18] LABS: HEMATOCRIT 28.8 % (41.0-60); MEAN CELL VOLUME 91.5 fl (80-99); MEAN CORPUSCULAR HEMOGLOBIN 31.8 pg (27.0-31.0); MEAN CORPUSCULAR HGB CONC 34.7 pg (28.0-36.0); MEAN PLATELET VOLUME 8.9 fl; PLATELET COUNT 89 Th/cmm (150-400); RED BLOOD COUNT 3.15 Mil/cmm (3.80-5.80); RED CELL DISTRIBUTION WIDTH 18.4 % (11.5-20.0)
[2018-03-24 00:20] LABS: WHITE BLOOD COUNT 33.2 Th/cmm (4.8-10.8)
[2018-03-24 00:45] LABS: BAND NEUTROPHILE 3 % (0-10); LYMPHOCYTE 1 % (20-50); MONOCYTE 2 % (2-10); NEUTROPHILS 94 % (40-80); PLATELET ESTIMATE DECREASED PLATELETS (NORMAL); TOTAL CELLS COUNTED 100
[2018-03-24] MEDS: INSULIN ASPART SLIDING SCALE 100 UNITS/ML UNIT SUBQ SCH ×4 (01:51→18:12)
[2018-03-24] MEDS: metroNIDAZOLE 500mg/NS 100mL 500 MG/100 ML BAG IV SCH ×3 (04:41→21:02)
[2018-03-24] MEDS: Diltiazem 5 mg/mL 5mL Vial IVP PRN (05:35)
[2018-03-24 06:37] LABS: HEMATOCRIT 32.7 % (41.0-60)
[2018-03-24 06:42] LABS: HEMOGLOBIN 11.5 gm/dL (12-16); MEAN CELL VOLUME 92.2 fl (80-99); MEAN CORPUSCULAR HEMOGLOBIN 32.4 pg (27.0-31.0); MEAN CORPUSCULAR HGB CONC 35.2 pg (28.0-36.0); MEAN PLATELET VOLUME 10.3 fl; PLATELET COUNT 77 Th/cmm (150-400); RED BLOOD COUNT 3.55 Mil/cmm (3.80-5.80); RED CELL DISTRIBUTION WIDTH 18.8 % (11.5-20.0)
[2018-03-24 06:46] LABS: WHITE BLOOD COUNT 20.8 Th/cmm (4.8-10.8)
[2018-03-24 06:47] LABS: % BASOPHILS 0.3 % (0.0-2.0); % EOSINOPHILS 0.1 % (0.0-5.0); % LYMPHOCYTES 2.4 % (20.0-50.0); % MONOCYTES 0.3 % (2.0-10.0); % NEUTROPHILS 96.9 % (40.0-80.0); BASOPHILE ABSOLUTE 0.1 Th/cumm (0-0.2); LYMPHOCYTE ABSOLUTE 0.5 Th/cmm (1.5-3.0); MONOCYTE ABSOLUTE 0.1 Th/cmm (0.3-1.0); NEUTROPHILE ABSOLUTE 20.1 Th/cmm (1.8-8.0)
[2018-03-24 07:05] LABS: ANION GAP 12.6 (7.0-16.0); BUN - UREA NITROGEN 30 mg/dL (7-25); CALCIUM SERUM 7.7 mg/dL (8.6-10.3); CHLORIDE 104 mEq/L (98-107); CREATININE - SERUM 0.6 mg/dL (0.7-1.3); GLUCOSE 126 mg/dL (70-105); PHOSPHOROUS 2.9 mg/dL (2.5-5.0); POTASSIUM SERUM 4.6 mEq/L (3.5-5.1); SODIUM SERUM 137 mEq/L (136-145)
[2018-03-24] MEDS: Ipratropium Neb 0.5 mg/2.5 mL UD HHN SCH ×2 (08:00→22:24)
[2018-03-24] MEDS: Potassium Chloride Elixir 20 mEq /15 mL UDC PO SCH (08:06)
[2018-03-24] MEDS: methylPREDNISolone SS 40 mg Vial IVP SCH ×2 (08:07→20:45)
--- NOTE | 2018-03-24 09:59 | Diagnostic Imaging Report ---
Portable chest x-ray HISTORY: Shortness of breath Compared with prior exam of 03/20/2018, extensive pleural calcification noted about the left hemithorax. No change in density within the right lower lobe that corresponds to CT demonstrated parenchymal findings of 03/13/2018. CT demonstrated focal parenchymal density of 03/13/2018 within the right apical region cannot be clearly visualized radiographically. IMPRESSION: 1. No significant change since 03/20/2018.
[2018-03-24 10:05] LABS: ALLEN TEST Positive; pH 7.58 (7.35-7.45)
[2018-03-24] MEDS: Levofloxacin 500mg/100mL 500 MG/100 ML BAG IV SCH (13:06)
[2018-03-24] MEDS: [UNRECOGNIZED DRUG - OTHER] IV SCH (15:27)
[2018-03-24] MEDS: MULTIVITAMIN IV SCH (15:27)
[2018-03-24] MEDS: AMINO ACIDS IV SCH (15:27)
[2018-03-24] MEDS: DEXT 10% IV SCH (15:27)
[2018-03-24] MEDS: Venelex 60gm Tube TP SCH (15:27)
[2018-03-24] MEDS: TRACE ELEMENT IV SCH (15:27)
[2018-03-24] MEDS: Clobetasol Propionate 0.05% Cream 45 gm Tube TP SCH (15:28)
[2018-03-24] MEDS ORDERED: Levofloxacin 500mg/100mL 500 MG/100 ML BAG IV SCH (16:00)
[2018-03-24] MEDS ORDERED: [UNRECOGNIZED DRUG - OTHER] IV SCH (17:00)
[2018-03-24] MEDS ORDERED: SODIUM CHLORIDE 0.9% IV SCH (17:00)
[2018-03-24] MEDS ORDERED: Linezolid 600mg/300mL 600 MG/300 ML BAG IV SCH (21:00)
[2018-03-25] MEDS: INSULIN ASPART SLIDING SCALE 100 UNITS/ML UNIT SUBQ SCH ×3 (00:25→11:52)
[2018-03-25] MEDS: metroNIDAZOLE 500mg/NS 100mL 500 MG/100 ML BAG IV SCH ×2 (05:41→12:57)
[2018-03-25 06:46] LABS: ANION GAP 10.8 (7.0-16.0); BUN - UREA NITROGEN 43 mg/dL (7-25); CARBON DIOXIDE 21.9 mEq/L (21.0-31.0); CHLORIDE 105 mEq/L (98-107); CHOLESTEROL 65 mg/dL (<200); CREATININE - SERUM 0.6 mg/dL (0.7-1.3); GLUCOSE 166 mg/dL (70-105); MAGNESIUM 2.3 mg/dL (1.9-2.7); PHOSPHOROUS 3.2 mg/dL (2.5-5.0); POTASSIUM SERUM 3.7 mEq/L (3.5-5.1); SODIUM SERUM 134 mEq/L (136-145); TRIGLYCERIDES 186 mg/dL (<150)
[2018-03-25 06:59] LABS: HEMOGLOBIN 9.9 gm/dL (12-16)
[2018-03-25 07:30] LABS: HEMATOCRIT 28.6 % (41.0-60); MEAN CELL VOLUME 93.1 fl (80-99); MEAN PLATELET VOLUME 11.2 fl; RED BLOOD COUNT 3.07 Mil/cmm (3.80-5.80); WHITE BLOOD COUNT 27.4 Th/cmm (4.8-10.8)
[2018-03-25 07:31] LABS: % BASOPHILS 1.4 % (0.0-2.0); % EOSINOPHILS 0.1 % (0.0-5.0); % LYMPHOCYTES 3.7 % (20.0-50.0); % MONOCYTES 3.5 % (2.0-10.0); % NEUTROPHILS 91.3 % (40.0-80.0); BASOPHILE ABSOLUTE 0.4 Th/cumm (0-0.2); MEAN CORPUSCULAR HEMOGLOBIN 32.2 pg (27.0-31.0); MEAN CORPUSCULAR HGB CONC 34.6 pg (28.0-36.0); PLATELET COUNT 31 Th/cmm (150-400); RED CELL DISTRIBUTION WIDTH 18.2 % (11.5-20.0)
[2018-03-25] MEDS: Ipratropium Neb 0.5 mg/2.5 mL UD HHN SCH ×3 (07:55→15:32)
[2018-03-25] MEDS: Venelex 60gm Tube TP SCH (08:32)
[2018-03-25] MEDS: methylPREDNISolone SS 40 mg Vial IVP SCH (08:33)
[2018-03-25] MEDS: Potassium Chloride Elixir 20 mEq /15 mL UDC PO SCH (08:55)
[2018-03-25] MEDS ORDERED: Levofloxacin 750mg/150mL 750 MG/150 ML BAG IV SCH (09:00)
[2018-03-25] MEDS ORDERED: LEVOFLOXACIN 750 MG/150 ML IV ONE (09:00)
--- NOTE | 2018-03-25 09:33 | Consultation ---
Consult Note - Consult Note Service Date: 03/25/18 Referring Physician: Octavio Oliveira Consult Note: PHYSICIAN Consultation Note: Date of Admission: 03/12/18 Purpose of Consultation: Sputum for AFB. Chief Complaint: Patient FLORENCE BRADY was admitted to location Intensive Care Unit with PNA, RESPIRATORY INSUFFICIENCY. History of Present Illness: 78 year-old female with history of hyperlipidemia, Depression, HTN, CHF, CVA, Dysphagia, Malaise, admitted to the hospital on 03/12/2018, for congestion and hypoxemia. On initial evaluation, she was afebrile and her WBC Count was 16, 100. She was treated for sepsis and pneumonia by zosyn and levaquin. CT scan of the chest on 03/13/2018 showed MARTY cavitary lesion. TB w/u was initiated and and Sputum for AFB 9 collected on 03/16/3018 showed 3+ AFB. ID consult was called for anti tb medications. She is dyphagic, unable to take meds by mouth, no G tube or NGT. Family is refusing G tube placement and NGT placement. I have talked to pharmacy for providing Rifampin IV, Isoniazid iv, amikacin iv and levaquin. Isoniazid could not be arranged so it was replaced with Zyvox. The Public Health is made aware and agree with the current plan. Past Medical History: hyperlipidemia, Depression, HTN, CHF, CVA, Dysphagia, Malaise. Diagnoses SEPSIS, UNSPECIFIED ORGANISM (03/12/18) HYPERLIPIDEMIA, UNSPECIFIED (03/12/18) MAJOR DEPRESSIVE DISORDER, SINGLE EPISODE, UNSPECIFIED (03/12/18) ESSENTIAL (PRIMARY) HYPERTENSION (03/12/18) ATHSCL HEART DISEASE OF [place] CORONARY ARTERY W/O ANG PCTRS (03/12/18) OLD MYOCARDIAL INFARCTION (03/12/18) UNSPECIFIED DIASTOLIC (CONGESTIVE) HEART FAILURE (03/12/18) UNSPECIFIED SEQUELAE OF CEREBRAL INFARCTION (03/12/18) PNEUMONIA, UNSPECIFIED ORGANISM (03/12/18) RESPIRATORY FAILURE, UNSPECIFIED WITH HYPOXIA (03/12/18) DYSPHAGIA, UNSPECIFIED (03/12/18) OTHER MALAISE (03/12/18) SEVERE SEPSIS WITH SEPTIC SHOCK (03/12/18) DO NOT RESUSCITATE (03/12/18) Allergies Allergy/AdvReac Type Severity Reaction Status Date / Time No Known Allergies Allergy Verified 03/12/18 08:47 Vital Signs Temp 97.6 F 03/25/18 07:00 Pulse 112 03/25/18 08:38 Resp 27 03/25/18 08:00 BP 102/64 03/25/18 08:33 Pulse Ox 100 03/25/18 08:00 Intake & Output 03/24/18 03/25/18 03/25/18 18:59 06:59 18:59 Intake Total 2215.36 1209.482 Output Total 350 450 Balance 1865.36 759.482 Weight (lbs) 85.548 kg 85.531 kg Intake: Intake, IV Amount 1615.36 609.482 Amikacin 500 mg In 102 Dextrose 5% 100 ml @ 200 mls/hr IV Q12H [facility] Rx#: [id number] Amiodarone 150 mg In 103 Dextrose 5% 100 ml @ 600 mls/hr IV ONCE ONE Rx#: [id number] Amiodarone 450 mg In 212.36 7.482 Dextrose 5% 250 ml @ Per Protocol IV TITR [facility] Rx#: [id number] Levofloxacin 500mg/100mL 100 500 mg In 100 ml @ 100 mls/hr IV Q24HR [facility] Rx#: [id number] Linezolid 600mg/300mL 600 300 mg In 300 ml @ 300 mls/ hr IV HS [facility] Rx#: [id number] Multivitamin Inj 10 ml 1100 Trace Element 1 ml In Amino Acids 4.25% /Dext 10% 1,039 ml In Intralipids 20% 150 ml @ 50 mls/hr IV .Q24H [facility] Rx #:[id number] metroNIDAZOLE 500mg/NS 100 200 100mL 500 mg In 100 ml @ 100 mls/hr IV Q8HR [facility] Rx #:[id number] TPN/PPN 600 600 Output: Urine 350 450 Other: # Bowel Movements 1 1 Stool Characteristics Soft Soft Soft Liquid Liquid Liquid Brown Ortiz Ortiz Green Green [facility] Results - last 24 hr 03/24/18 03/24/18 03/24/18 06:20 09:53 13:54 WBC RBC Hgb Hct MCV MCH MCHC Differential RDW Plt Count MPV Neutrophils % Lymphocytes % Monocytes % Eosinophils % Basophils % Specimen Source Arterial Sample Site Right Radial pH 7.58 H* pCO2 26.0 L pO2 111.0 H HCO3 27.7 H Base Excess 3.5 H O2 Saturation 99.0 Manan Test Positive Vent Rate 12 Inspired O2 35 Tidal Volume NA PEEP 9 Pressure (ins/psv/peep) 5 Critical Value LZHANG Sodium Potassium Chloride Carbon Dioxide Anion Gap BUN Creatinine Est GFR ( Amer) Est GFR (Non-Af Amer) BUN/Creatinine Ratio Glucose POC Glucose 169 H Calcium Phosphorus Magnesium B-Natriuretic Peptide Triglycerides Cholesterol HIV 1&2 Antibody Screen NEGATIVE 03/24/18 03/25/18 03/25/18 18:01 00:23 05:48 WBC RBC Hgb Hct MCV MCH MCHC Differential RDW Plt Count MPV Neutrophils % Lymphocytes % Monocytes % Eosinophils % Basophils % Specimen Source Sample Site pH pCO2 pO2 HCO3 Base Excess O2 Saturation Manan Test Vent Rate Inspired O2 Tidal Volume PEEP Pressure (ins/psv/peep) Critical Value Sodium Potassium Chloride Carbon Dioxide Anion Gap BUN Creatinine Est GFR ( Amer) Est GFR (Non-Af Amer) BUN/Creatinine Ratio Glucose POC Glucose 160 H 207 H 162 H Calcium Phosphorus Magnesium B-Natriuretic Peptide Triglycerides Cholesterol HIV 1&2 Antibody Screen 03/25/18 03/25/18 03/25/18 05:50 05:50 05:50 WBC 27.4 H* RBC 3.07 L Hgb 9.9 L Hct 28.6 L MCV 93.1 MCH 32.2 H MCHC Differential 34.6 RDW 18.2 Plt Count 31 L MPV 11.2 Neutrophils % 91.3 H Lymphocytes % 3.7 L Monocytes % 3.5 Eosinophils % 0.1 Basophils % 1.4 Specimen Source Sample Site pH pCO2 pO2 HCO3 Base Excess O2 Saturation Manan Test Vent Rate Inspired O2 Tidal Volume PEEP Pressure (ins/psv/peep) Critical Value Sodium 134 L Potassium 3.7 Chloride 105 Carbon Dioxide 21.9 Anion Gap 10.8 BUN 43 H Creatinine 0.6 L Est GFR ( Amer) TNP Est GFR (Non-Af Amer) TNP BUN/Creatinine Ratio 71.7 Glucose 166 H POC Glucose Calcium 7.0 L Phosphorus 3.2 Magnesium 2.3 B-Natriuretic Peptide 485.0 H Triglycerides 186 H Cholesterol 65 HIV 1&2 Antibody Screen Home Medication Medication Instructions Recorded Type Cholecalciferol (Vitamin D3) 2,000 iu PO DAILY 01/12/15 History [Vitamin D3] Ciclopirox Olamine [Ciclopirox] 1 applic TP BID 11/11/17 History Mupirocin Oint [Mupirocin*] 1 appl TP DAILY 11/11/17 History Acetaminophen [Tylenol Extra 500 mg PO Q4H PRN tab 11/14/17 Rx Strength] Acetylcysteine 20% [Mucomyst 20%] 2 ml HHN Q8HRT vial 11/14/17 Rx Albuterol/Ipratropium Neb [Duoneb 3 ml HHN Q4HRT aers 11/14/17 Rx Neb] Azithromycin [Zithromax] 500 mg IV Q24HR vial 11/14/17 Rx Baclofen [Lioresal*] 10 mg PO BID tab 11/14/17 Rx Calcium Carbonate [Os-Fredis] 500 mg PO BID tab 11/14/17 Rx Carvedilol [Coreg] 6.25 mg PO BID tab 11/14/17 Rx Cefepime [Maxipime] 1 gm IV Q8HR vial 11/14/17 Rx Clobetasol Prop 0.05% Cream 1 appl TP DAILY appl 11/14/17 Rx [Temovate 0.05% Cream*] Clopidogrel [Plavix] 75 mg PO DAILY tab 11/14/17 Rx Digoxin [Lanoxin] 0.125 mg PO DAILY tab 11/14/17 Rx Docusate Sodium [Colace] 100 mg PO HS cap 11/14/17 Rx Ferrous Sulfate [Iron] 325 mg PO BID tab 11/14/17 Rx Lisinopril [Zestril] 5 mg PO DAILY tab 11/14/17 Rx Magnesium Hydroxide [Milk of 30 ml PO DAILY PRN udc 11/14/17 Rx Magnesia] Mirtazapine [Remeron] 15 mg PO HS tab 11/14/17 Rx Oxybutynin Chloride [Ditropan*] 5 mg PO BID tab 11/14/17 Rx Simvastatin [Zocor*] 20 mg PO HS tab 11/14/17 Rx Tamsulosin [Flomax] 0.4 mg PO HS cap 11/14/17 Rx Venlafaxine HCl [Effexor*] 37.5 mg PO DAILY tab 11/14/17 Rx methylPREDNISolone SS [Solu-MEDROL] 60 mg IVP Q6HR vial 11/14/17 Rx Current Medications Generic Name Dose Route Start Last Admin Trade Name Freq PRN Reason Stop Dose Admin Acetaminophen 500 mg 03/12/18 18:51 Tylenol Extra Strength PO 05/11/18 18:50 Q4H PRN Pain or Fever >101 Acetylcysteine 2 ml 03/23/18 23:00 03/25/18 07:56 Mucomyst 20% PO 05/22/18 22:59 2 ml Q8HRT [facility] Administration Carvedilol 6.25 mg 03/12/18 19:00 03/25/18 08:54 Coreg PO 05/11/18 18:59 Not Given BID [facility] Pr[place] Oil/[place] Balsam/Trypsin 1 appl 03/21/18 09:00 03/25/18 08:32 Venelex TP 05/20/18 08:59 1 appl DAILY [facility] Administration Clobetasol Propionate 1 appl 03/12/18 19:00 03/24/18 15:28 Temovate 0.05% Cream TP 05/11/18 18:59 Not Given DAILY [facility] Digoxin 0.125 mg 03/23/18 10:15 03/25/18 08:38 Lanoxin IVP 05/22/18 10:14 0.125 mg DAILY [facility] Administration Diltiazem HCl 5 mg 03/23/18 07:35 03/24/18 05:35 Cardizem IVP 05/22/18 07:34 5 mg Q6H PRN Administration HR > 120 Docusate Sodium 100 mg 03/12/18 21:00 03/24/18 21:00 Colace PO 05/11/18 20:59 Not Given HS [facility] Furosemide 40 mg 03/23/18 21:00 03/25/18 08:33 Lasix IVP 05/22/18 20:59 40 mg Q12HR [facility] Administration Metronidazole 500 mg in 100 mls @ 100 mls/hr 03/12/18 14:00 03/25/18 06:41 Flagyl IV 05/11/18 13:59 Infused Q8HR [facility] Infusion Multivitamins/Minerals 10 ml/ 1,200 mls @ 50 mls/hr 03/18/18 16:00 03/24/18 15:27 Chromium/Copper/Manganese/Zinc IV 05/17/18 15:59 50 mls/hr 1 ml/ Amino Acids/ Fat .Q24H [facility] Administration Emulsion Intravenous Amiodarone HCl 450 mg/ 259 mls @ 0 mls/hr 03/24/18 07:24 03/24/18 19:51 Dextrose IV 05/23/18 07:23 0.05 mg/min TITR [facility] 1.72 mls/hr Protocol Administration Per Protocol Norepinephrine Bitartrate 4 mg 254 mls @ 0 mls/hr 03/24/18 07:26 / Dextrose IV 05/23/18 07:25 TITR PRN BP MAINTENANCE (PER PROTOCOL) Protocol Per Protocol Miscellaneous 1 vial/ Sodium 100 mls @ 100 mls/hr 03/24/18 17:00 03/24/18 17: 37 Chloride IV 05/23/18 16:59 100 mls/hr Q24H [facility] Administration Amikacin Sulfate 500 mg/ 102 mls @ 200 mls/hr 03/24/18 21:00 03/25/18 09:29 Dextrose IV 05/23/18 20:59 200 mls/hr Q12H [facility] Administration Linezolid 600 mg in 300 mls @ 300 mls/hr 03/24/18 21:00 03/24/18 23:07 Zyvox IV 05/23/18 20:59 Infused HS [facility] Infusion Levofloxacin 750 mg in 150 mls @ 100 mls/hr 03/25/18 09:00 03/25/18 09:29 Levaquin Pb IV 05/24/18 08:59 100 mls/hr Q24HR [facility] Administration Insulin Aspart 0 units 03/18/18 18:00 03/25/18 05:50 Novolog Insulin Sliding Scale SUBQ 05/17/18 17:59 2 units Q6HR [facility] Administration Protocol Ipratropium [place] 0.5 mg 03/24/18 11:00 03/25/18 07:55 Atrovent Neb 0.5mg/2.5ml HHN 05/23/18 10:59 0.5 mg QIDRT [facility] Administration Magnesium Hydroxide 30 ml 03/12/18 18:55 Milk Of Magnesia PO 05/11/18 18:54 DAILY PRN Constipation Methylprednisolone Sodium Succinate 40 mg 03/22/18 21:00 03/25/18 08:33 Solu-Medrol IVP 05/21/18 20:59 40 mg Q12HR [facility] Administration Mirtazapine 15 mg 03/12/18 21:00 03/24/18 21:01 Remeron PO 05/11/18 20:59 Not Given HS [facility] Protocol Miscellaneous 1 ea 03/17/18 11:49 Ppn Per Pharmacy 05/16/18 11:48 PRN PRN PROTOCOL Miscellaneous 1 ea 03/24/18 13:45 Pharmacy To Dose MC 05/23/18 13:44 PRN [facility] Miscellaneous 1 ea 03/24/18 19:00 Pharmacy To Dose MC 05/23/18 18:59 PRN [facility] Morphine Sulfate 1 mg 03/23/18 10:27 Morphine IV 05/22/18 10:26 Q4HR PRN Pain (Severe) Oxybutynin Chloride 5 mg 03/12/18 19:00 03/25/18 08:55 Ditropan PO 05/11/18 18:59 Not Given BID [facility] Potassium Chloride 10 meq 03/20/18 10:00 03/25/18 08:55 Potassium Chloride Elixir PO 05/19/18 09:59 Not Given DAILY [facility] Promethazine HCl/Dextromethorphan 10 ml 03/12/18 12:49 Phenergan Dm 6.25/15mg-5 Ml PO 05/11/18 12:48 Q4H PRN Cough Tamsulosin HCl 0.4 mg 03/12/18 21:00 03/24/18 21:01 Flomax PO 05/11/18 20:59 Not Given HS [facility] Review of Systems: A 12 point ROS was reviewed with the pertinent positive and negatives noted in the HPI. Social History Smoking Status Smoker, status unknown Family Medical History Family Medical History Start: 03/12/18 12: 07 Freq: Status: Active Document 03/22/18 19:09 STEPHAN (Rec: 03/23/18 01:24 STEPHAN [id number] ) Family Medical History Father History Unknown Yes Physical Exam: General: Comfortable, not in acute distress. HEENT: Head: normocephalic, atraumatic. Oral cavity: moist. pink tongue. EYES: pallor present, no icterus. Pupill PERRLA. EOMI. Neck: Supple, no JVD, no carotid bruit. Cardio: S1 and S 2 WNL. No murmur. Respiratory: Vesicular breath sounds, crackles present. Abdominal: Soft NT ND BS present. Genital/Urinary: Extremities: NCCE. Neurological: Alert awake, aphasic. Left sided weakness. Assessment: 1. MARTY Cavitary with AFB positive, 2. CHF. 3. Respiratory insufficiency. 4. DM2 5. HTN. 6. CVA with left sided paralysis. 2010. 7. Pneumonia. Plan: Recommended regimen: Isoniazid, rifampin, pyrazinamide, and ethambutol. patient has denied NGT and G tube and any means of artivficial feeding. I have talked to his bropther, he agreed for NGT and meds only through NGT. NO NGT FEEDING. Try Parenteral treatment with Rifampin IV, Amikacin IV, Levaquin IV and Linezolid IV. INH IV is not available at this pharmacy and other local hospitals at this time. Patient needs Negativepressure room and it is alsoo not available at this time ( Repair/engineering issues), so transfer to the [facility]. Thank you, Dr Oliveira and Dr Hanson for involving me in taking care of this patient. Signed, Earl Thomson M.D. [id number]
--- NOTE | 2018-03-25 10:00 | Diagnostic Imaging Report ---
CHEST X-RAY: AP view INDICATION: Shortness of breath COMPARISON: 03/24/2018 FINDINGS: Right midline PICC is noted. Left apical pleural thickening and capping again noted. Extensive left lung pleural calcifications are noted. No definite effusions. Borderline prominent heart is noted with atherosclerosis. IMPRESSION: Extensive left lung pleural calcifications likely sequela of old infectious or inflammatory process. Superimposed acute processes is considered less likely but cannot be excluded. Atherosclerotic vascular disease.
[2018-03-25 10:47] LABS: ALB/GLOB RATIO 0.9 (1.0-1.8); ALBUMIN 1.7 gm/dL (4.2-5.5); BILIRUBIN,DIRECT 0.67 mg/dL (0.0-0.2); BILIRUBIN,TOTAL 1.2 mg/dL (0.3-1.0); TOTAL PROTEIN,SERUM 3.5 gm/dL (6.0-8.3)
--- NOTE | 2018-03-25 12:27 | Diagnostic Imaging Report ---
KUB single view HISTORY: NG tube placement COMPARISON: None FINDINGS: NG tube is seen within the stomach. Diffuse gaseous distended loops of bowel are noted. Left-sided pleural calcifications are noted. IMPRESSION: NG tube in the stomach. Diffuse gas distended loops of bowel which may be due to a severe ileus. Clinical correlation and follow-up is recommended.
[2018-03-25] MEDS ORDERED: [UNRECOGNIZED DRUG - OTHER] IV SCH (12:52)
[2018-03-25] MEDS ORDERED: SODIUM CHLORIDE 0.9% IV SCH (12:52)
[2018-03-25] MEDS ORDERED: Rifampin 300 mg Cap NG SCH ×2 (14:00→15:00)
[2018-03-25 15:11] LABS: HEP A AB IGM Negative (Negative); HEP B CORE IGM Negative (Negative); HEP B SURFACE AG QL Negative (Negative); HEP C ANTIBODY <0.1 s/co ratio (0.0-0.9)
[2018-03-25] MEDS: Clobetasol Propionate 0.05% Cream 45 gm Tube TP SCH (15:24)
--- NOTE | 2018-03-25 17:54 | Cardiology ---
03/24/2018 PROCEDURE: Echocardiogram. The patient of Dr. Oliveira. M-MODE ECHOCARDIOGRAM: Mitral valve, anterior leaflet of mitral valve shows decreased excursion, EF velocity. Posterior leaflet of the mitral valve shows decreased excursion. Left ventricular posterior wall shows normal thickness, decreased excursion. Interventricular septum showed normal thickness, decreased excursion, ejection fraction 29%. Left atrium normal. Aortic root shows normal dimension, normal excursion of aortic leaflets. CONCLUSION: Cardiomyopathy, ejection fraction 29%. 2D ECHO: Long axis view shows enlarged left ventricular cavity with global hypokinesis. Mitral valve shows decreased excursion. Left atrium normal. Right ventricle, right atrium normal. Short axis view of mitral valve, tricuspid valve normal. CONCLUSION: Cardiomyopathy, ejection fraction 29%. Doppler study shows moderate mitral regurgitation, trace tricuspid regurgitation. JOB# [id number]
--- NOTE | 2018-03-31 21:50 | Discharge Summary ---
DATE OF DISCHARGE: 03/25/2018 ADMITTING DIAGNOSES: 1. Sepsis/shock. 2. Bilateral pneumonia. 3. Hypoxic respiratory failure. 4. Elevated lactic acid level. 5. DNR level 3. SECONDARY DIAGNOSES: 1. History of diastolic heart failure. 2. Recent history of pneumonia. 3. History of coronary artery disease with previous MN. 4. History of cerebrovascular accident with late effects. 5. History of hypercholesterolemia. 6. Essential hypertension. 7. History of chronic debility. 8. History of depression. DISCHARGE DIAGNOSES: 1. Sepsis shock - clinically stable. 2. Bilateral pneumonia - improved. 3. Hypoxic respiratory failure - improved. 4. Elevated lactic acid level - resolved. 5. Left upper lobe cavitary lesion. 6. Dysphagia/FTT-s/p PICC line on PPN. CONSULTANTS: Dr. Mcmillan, pulmonary; Dr. Alba, GI. MAJOR PROCEDURES: CT of the chest without contrast done on 03/13/2018 showed a left upper lobe cavitary infiltrate measuring up to 2.8 x 2.8 cm. 2D echo done on 03/24/2018 shows cardiomyopathy with an EF of 29%. Doppler study showed moderate mitral regurgitation, trace tricuspid regurgitation. MEDS ON DISCHARGE: PLEASE REFER TO MAR/TRANSFER MEDS BRIEF HOSPITAL COURSE: The patient is a 78-year-old gentleman who presented from a [facility] facility with congestion, cough and shortness of breath. On admission, he was noted to be extremely lethargic with a white count of 16.1. Sodium 138, BUN of 29, lactic acid of 7.22. He was admitted to the [facility] and placed briefly on BiPAP, but eventually was transitioned to a Venturi mask of 35% FiO2. The patient was placed on broad-spectrum antibiotics, IV fluids, IV staroids. X-ray on admission showed extensive abnormal density that appears calcified within the left hemithorax and most likely associated with the pleura. Additional chronic changes were noted in the left and to a lesser degree in the right lower lobe regions. Given this finding, he underwent the above-mentioned CT and was placed on isolation to rule out TB. He was seen by pulmonary consult and also was placed on PPN given that he was unable to eat secondary to his lethargy/encephalopathy. Given his DNR level 3, case was discussed with his brother and G-tube placement was brought up, but given his DNR level 3, he did not undergo a G-tube placement. His blood cultures remained negative, but his sputum [employer] did grow Klebsiella pneumoniae. 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 As far as his labs go, his white count was noted to be consistently high, which was partially attributed to Solu-Medrol, which he received throughout his hospital stay. Given his condition, I discussed the case with his brother, who was agreeable to hospice care. CONDITION ON DISCHARGE: Stable. DISPOSITION: The patient was sent to [facility] under the care of Dr. Palm. JOB# [id number] DEBORAH
== END 2018-03-25 17:00 | DRG 871 ==
LOC: ER 08:20 → TELE 10:48 → UNDODISIN 03-22 18:50 → ICU 03-24 07:28
PROVIDERS: ADMIT Internal Medicine; ATTEND Internal Medicine
PROC: 5A09357 Assistance with Respiratory Ventilation, Less than 24 Consecutive Hours, Continuous Positive Airway Pressure (ICD-10-PCS; principal; 2018-03-24)
DX: A41.9 Sepsis, unspecified organism (principal); R65.21 Severe sepsis with septic shock; J69.0 Pneumonitis due to inhalation of food and vomit; J96.01 Acute respiratory failure with hypoxia; I50.30 Unspecified diastolic (congestive) heart failure; I69.354 Hemiplegia and hemiparesis following cerebral infarction affecting left non-dominant side; I47.1 Supraventricular tachycardia; E78.5 Hyperlipidemia, unspecified; I25.2 Old myocardial infarction; R53.81 Other malaise; F32.9 Major depressive disorder, single episode, unspecified; Z66 Do not resuscitate; R13.10 Dysphagia, unspecified; I11.0 Hypertensive heart disease with heart failure; E78.00 Pure hypercholesterolemia, unspecified; E11.51 Type 2 diabetes mellitus with diabetic peripheral angiopathy without gangrene; K21.9 Gastro-esophageal reflux disease without esophagitis; F03.90 Unspecified dementia, unspecified severity, without behavioral disturbance, psychotic disturbance, mood disturbance, and anxiety; L89.629 Pressure ulcer of left heel, unspecified stage; M19.90 Unspecified osteoarthritis, unspecified site; I25.119 Atherosclerotic heart disease of native coronary artery with unspecified angina pectoris; D50.9 Iron deficiency anemia, unspecified; Z82.3 Family history of stroke
CPT/HCPCS: 36415-UA; 36600-90; 71045-TC; 71250-TC; 74000-TC; 80048-TC; 80053-TC; 80074-90; 80076-TC; 82465-TC; 82803-TC; 82948-90; 83605; 83735-TC; 83880-TC; 84100-TC; 84134-90; 84478-TC; 84484-TC; 85007-TC; 85025-TC; 85027-TC; 86480-90; 86703-TC; 87070; 87116-90; 87206-90; 90779; 90799; 93005; 93307-TC; 94640; 94660; 94760; J0278; J0282; J1160; J1815; J1940; J1956; J2001; J2020; J2543; J2920; J2930; J3475; J3480; J7030; X3401; X6452; X6598; Z7610